=== PATIENT | female | born 1980 | race Two or more races ===

== ENCOUNTER 2016-02-09 08:09 | Inpatient (IN) | payer OTHER ==
[2016-02-09 10:16] VITALS: BMI 22.1
--- NOTE | 2016-02-09 10:28 | HP ---
COWS - Scale Resting Pulse: 1= [place] 81-100 Sweatin=Flushed/Facial Moisture Restless Observation: 3= Extraneous Movement Pupil Size: 2= Moderately Dilated Bone or Joint Aches: 2= Severe Diffuse Aches Runny Nose/ Eye Tearin= Runny Nose/Eyes GI Upset > 30mins: 3= Vomiting/Diarrhea Tremor Observation: 2= Slight Tremor Visible Yawning Observation: 2= >3x During Session Anxiety or Irritability: 2=Irritable/Anxious Goose Flesh Skin: 0=Smooth Skin COWS Score: 21 CIWA Score - CIWA Score Nausea/Vomitin Muscle Tremors: 3 Anxiety: 3 Agitation: 3 Paroxysmal Sweats: 2 Orientation: 0-Oriented Tacttile Disturbances: 2-Mild Itch/Numbness/Burn Auditory Disturbances: 2-Mild Harshness/Frighten Visual Disturbances: 2-Mild Sensitivity Headache: 2-Mild CIWA-Ar Total Score: 22 Admission ROS BHS - HPI Chief Complaint: i need help to stop using heroin,alcohol and cocaine Allergies/Adverse Reactions: Allergies Allergy/AdvReac Type Severity Reaction Status Date / Time Sulfa (Sulfonamide Allergy Unknown Verified 01/06/16 03:05 Antibiotics) [Sulfa(Sulfonamide Antibiotics)] sulfamethoxazole Allergy Unknown Verified 01/06/16 03:05 [From Bactrim] trimethoprim [From Bactrim] Allergy Unknown Verified 01/06/16 03:05 History of Present Illness: this 35 years old female with heroin,cocaine and alcohol dependence,withdrawal symptom,last detox 01/06/16 to 01/11/16 nicotine dependence weight loss several admissions in detox longest period of sobriety discharge form vagina supposed to take flagyl 500 mgs po bid non compliance Exam Limitations: No Limitations - Ebola screening Have you traveled outside of the country in the last 21 days: No Have you been sick,other than usual withdrawal symptoms: No - Review of Systems Constitutional: Chills, Diaphoresis, Loss of Appetite, Malaise, Night Sweats, Changes in sleep, Weakness, Unexplained wgt Loss EENT: reports: Tearing, Nose Congestion Respiratory: reports: No Symptoms reported Cardiac: reports: No Symptoms Reported GI: reports: Diarrhea, Nausea, Vomiting, Abdominal cramping : reports: No Symptoms Reported Musculoskeletal: reports: Back Pain, Muscle Pain Integumentary: reports: Dryness Neuro: reports: Headache, Tremors Endocrine: reports: No Symptoms Reported Hematology: reports: No Symptoms Reported Psychiatric: reports: No Sypmtoms Reported Other Systems: Reviewed and Negative Patient History - Patient Medical History Hx Anemia: No Hx Asthma: Yes (on albuterol inhaler) Hx Chronic Obstructive Pulmonary Disease (COPD): No Hx Cancer: No Hx Cardiac Disorders: No Hx Congestive Heart Failure: No Hx Hypertension: No Hx Hypercholesterolemia: No Hx Pacemaker: No HX Cerebrovascular Accident: No Hx Seizures: No Hx Dementia: No Hx Diabetes: No Hx Gastrointestinal Disorders: No Hx Liver Disease: No Hx Genitourinary Disorders: No Hx Sexually Transmitted Disorders: No Hx Renal Disease (ESRD): No Hx Thyroid Disease: No Hx Human Immunodeficiency Virus (HIV): No (LAST 2014 NEGATIVE) Hx Hepatitis C: No Hx Depression: No Hx Suicide Attempt: No Hx Bipolar Disorder: No Hx Schizophrenia: No Other Medical History: no suicidal,no homicidal,conjunctivitis both eyes, vcaginitis non compliance - Patient Surgical History Past Surgical History: Yes Hx Neurologic Surgery: No Hx Cataract Extraction: No Hx Cardiac Surgery: No Hx Lung Surgery: No Hx Breast Surgery: No Hx Breast Biopsy: No Hx Abdominal Surgery: No Hx Appendectomy: No Hx Cholecystectomy: No Hx Genitourinary Surgery: No Hx Section: Yes (x 3 LAST 2005) Hx Orthopedic Surgery: No Anesthesia Reaction: No - PPD History Previous Implant?: Yes Documented Results: Negative w/proof Date: 07/25/15 Results: Negative PPD to be Administered?: No - Reproductive History Patient is a Female of Child Bearing Age (11 -55 yrs old): Yes Last Menstrual Period: 12/16/15 Patient : No - Smoking Cessation Smoking history: Current every day smoker Have you smoked in the past 12 months: Yes Aproximately how many cigarettes per day: 20 Hx Chewing Tobacco Use: No Initiated information on smoking cessation: Yes 'Breaking Loose' booklet given: 02/09/16 - Substance & Tx. History Hx Alcohol Use: Yes Hx Substance Use: Yes Substance Use Type: Alcohol, Cocaine, Heroin Hx Substance Use Treatment: Yes (last 01/06/16 to 01/11/16) Family Disease History - Family Disease History Family Disease History: Diabetes: Grandparent (LUNG), Brother, [place]: Grandparent, Other: Mother (ALCOHOL), Sister (DSA) Admission Physical Exam BHS - Vital Signs Vital Signs: Vital Signs - 24 hr 02/09/16 10:10 Temperature 96.1 F L Pulse Rate 81 Respiratory 18 Rate Blood Pressure 105/62 - Physical General Appearance: Yes: Moderate Distress, Tremorous, Irritable, Sweating, Anxious HEENTM: Yes: Nasal Congestion, Rhinorrhea, Other (treated for conjuctivitis both eyes for 3 days) Respiratory: Yes: Within Normal Limits Neck: Yes: Within Normal Limits Breast: Yes: Breast Exam Deferred Cardiology: Yes: Within Normal Limits, Regular Rhythm, Regular Rate, S1, S2 Abdominal: Yes: Within Normal Limits, Normal Bowel Sounds, Non Tender, Flat, Soft Genitourinary: Yes: Within Normal Limits Back: Yes: Muscle Spasm Musculoskeletal: Yes: Back pain, Joint Stiffness, Muscle Pain Extremities: Yes: Tremors Neurological: Yes: Within Normal Limits, data security analyst II-XII NML intact, Fully Oriented, Alert, Motor Strength 5/5 Integumentary: Yes: Dry Lymphatic: Yes: Within Normal Limits - Diagnostic (1) Alcohol dependence with uncomplicated withdrawal Current Visit: No Status: Acute (2) Opioid dependence with withdrawal Current Visit: No Status: Acute (3) Weight loss Current Visit: No Status: Acute (4) Asthma Current Visit: No Status: Chronic Qualifiers: Asthma severity: mild intermittent Asthma complication type: with status asthmaticus Qualified Code(s): J45.22 - Mild intermittent asthma with status asthmaticus (5) Cocaine dependence Current Visit: No Status: Chronic Qualifiers: Substance use status: uncomplicated Qualified Code(s): F14.20 - Cocaine dependence, uncomplicated (6) Nicotine dependence Current Visit: No Status: Chronic Qualifiers: Nicotine product type: cigarettes Substance use status: uncomplicated Qualified Code(s): F17.210 - Nicotine dependence, cigarettes, uncomplicated (7) History of conjunctivitis Current Visit: Yes Status: Acute (8) History of vaginitis Current Visit: Yes Status: Acute (9) History of trichomonal vaginitis Current Visit: Yes Status: Acute Cleared for Admission [facility] - Detox or Rehab [facility] Level of Care: Medically Managed Detox Regimen/Protocol: Methadone/Valium [facility] Breath Alcohol Content Breath Alcohol Content: 0 Urine Pregancy Test - Result Urine Test Results: Negative- NO Line Present Urine Drug Screen - Results Drug Screen Negative: No Urine Drug Screen Results: EVELIN-Cocaine, OPI-Opiates, TCA-Tricyclic Antidepress, OXY-Oxycodone
[2016-02-09] MEDS ORDERED: guaiFENesin/D-METHORPHAN HB 10 ML UNIT-DOSE CUPS PO PRN (10:45)
[2016-02-09] MEDS ORDERED: MAGNESIUM HYDROX 2400MG/30ML ORAL SUSPENSION 30 ML CUP PO PRN (10:45)
[2016-02-09] MEDS ORDERED: MAG HYDROX/AL HYDROX/SIMETH 30 ML UNIT-DOSE CUP PO PRN (10:45)
[2016-02-09] MEDS ORDERED: ACETAMINOPHEN 325 MG TABLET (FP) PO PRN (10:45)
[2016-02-09] MEDS ORDERED: P-EPHED 60MG/TRIPROLIDI 2.5MG TABLET PO PRN (10:45)
[2016-02-09] MEDS ORDERED: hydrOXYzine PAMOATE 25 MG CAPSULE (FP) PO PRN (10:45)
[2016-02-09] MEDS ORDERED: MENTHOL/PHENOL 1 EACH UD MM PRN (10:45)
[2016-02-09] MEDS ORDERED: MAGNESIUM CITRATE 300 ML BOTTLE PO PRN (10:45)
[2016-02-09] MEDS ORDERED: LOPERAMIDE HCL 2 MG CAPSULE PO PRN (10:45)
[2016-02-09] MEDS ORDERED: IBUPROFEN 400 MG TABLET (FP) PO PRN (10:45)
[2016-02-09] MEDS ORDERED: ALBUTEROL SO4 6.7 GM HFA INHALER IH PRN (10:50)
[2016-02-09] MEDS ORDERED: diazePAM 5 MG TABLET PO ONE (10:52)
[2016-02-09] MEDS ORDERED: METHADONE HCL 10 MG TABLET (FOR DETOX USE ONLY) PO ONE ×2 (10:54→23:00)
[2016-02-09] MEDS: CYCLOBENZAPRINE HCL 10 MG TABLET (FP) PO PRN ×2 (11:38→22:57)
[2016-02-09] MEDS: diazePAM 5 MG TABLET PO SCH ×2 (14:59→22:57)
[2016-02-09] MEDS: diazePAM 5 MG TABLET PO PRN (19:25)
[2016-02-09 20:10] LABS: URINE APPEARANCE SLCLOUDY; URINE BILIRUBIN NEGATIVE (NEGATIVE); URINE BLOOD NEGATIVE (NEGATIVE); URINE COLOR AMBER; URINE GLUCOSE (UA) NEGATIVE (NEGATIVE); URINE KETONE TRACE (NEGATIVE); URINE LEUK ESTERASE NEGATIVE (NEGATIVE); URINE NITRITE NEGATIVE (NEGATIVE); URINE UROBILINOGEN NEGATIVE E.U./dl (0.2-1.0)
[2016-02-09 20:13] LABS: URINE PROTEIN 1+ (NEGATIVE)
[2016-02-09 20:46] LABS: URINE MUCUS MANY; URINE RBC 2 /hpf (0-3); URINE WBC 7 /hpf (3-5)
[2016-02-09] MEDS: cloNIDine HCL 0.1 MG TABLET PO SCH (22:57)
[2016-02-09] MEDS: THIAMINE HCL 100 MG TABLET (FP) PO SCH (22:57)
[2016-02-09] MEDS: TOBRA 0.3%/DEXAMETH 0.1% OPHTHALMIC SUSP 2.5 ML BTL OU SCH (23:14)
[2016-02-10] MEDS: diazePAM 5 MG TABLET PO SCH ×3 (05:50→22:25)
[2016-02-10] MEDS ORDERED: METHADONE HCL 10 MG TABLET (FOR DETOX USE ONLY) PO SCH (10:00)
[2016-02-10] MEDS: PRENATAL VITAMINS W/ FOLIC ACID TABLET (FP) PO SCH (10:34)
[2016-02-10] MEDS: CYCLOBENZAPRINE HCL 10 MG TABLET (FP) PO PRN ×2 (10:34→22:25)
[2016-02-10] MEDS: cloNIDine HCL 0.1 MG TABLET PO SCH ×2 (10:35→22:25)
[2016-02-10] MEDS: diazePAM 5 MG TABLET PO PRN ×2 (10:35→19:54)
--- NOTE | 2016-02-10 10:39 | PN ---
[facility] CIWA - CIWA Score Nausea/Vomitin Muscle Tremors: 3 Anxiety: 3 Agitation: 3 Paroxysmal Sweats: 3 Orientation: 0-Oriented Tacttile Disturbances: 2-Mild Itch/Numbness/Burn Auditory Disturbances: 0-None Visual Disturbances: 0-None Headache: 1-Very Mild CIWA-Ar Total Score: 18 BHS COWS - Scale Resting Pulse: 0= [place] 80 or Below Sweatin=Flushed/Facial Moisture Restless Observation: 1= Difficult to Sit Still Pupil Size: 1= Pupils >than Normal Bone or Joint Aches: 2= Severe Diffuse Aches Runny Nose/ Eye Tearin= Nasal Congestion GI Upset > 30mins: 1= Stomach Cramp Tremor Observation of Outstretched Hands: 2= Slight Tremor Visible Yawning Observation: 0= None Anxiety or Irritability: 2=Irritable/Anxious Goose Flesh Skin: 0=Smooth Skin COWS Score: 12 BHS Progress Note (SOAP) Subjective: interrrupted sleep, sweats, shakes , irritable Objective: 02/10/16 10:48 Vital Signs Temperature 97.2 F L 02/10/16 10:22 Pulse Rate 90 02/10/16 10:22 Respiratory Rate 18 02/10/16 10:22 Blood Pressure 110/78 02/10/16 10:22 O2 Sat by Pulse Oximetry (%) Laboratory Tests 02/09/16 14:00 Urine Color Twila Urine Appearance Slcloudy Urine pH 5.0 Ur Specific [place] 1.033 Urine Protein 1+ H Urine Glucose (UA) Negative Urine Ketones Trace H Urine Blood Negative Urine Nitrite Negative Urine Bilirubin Negative Urine Urobilinogen Negative Ur Leukocyte Esterase Negative Urine RBC 2 Urine WBC 7 Ur Epithelial Cells Rare Urine Mucus Many pending labs pt aox3 in nad but irritable Assessment: 02/10/16 10:48 withdrawl sx's conjunctivitis 02/10/16 10:51 Plan: cont. detox increase fluids cont eye drops
[2016-02-10 11:31] LABS: MCH 29.2 pg (25.7-33.7); MCHC 33.4 g/dl (32.0-36.0); MEAN CELL VOLUME 87.6 fl (80-96); PLATELET COUNT 254 K/MM3 (134-434); RDW 13.7 % (11.6-15.6); WHITE BLOOD COUNT 11.6 K/mm3 (4.0-10.0)
[2016-02-10] MEDS ORDERED: INFLUENZA VACCINE 45 MCG/0.5 ML (MDV 16-17) IM ONE (12:00)
[2016-02-10 12:09] LABS: ALBUMIN 3.7 g/dl (3.4-5.0); ALK PHOS 88 U/L (45-117); ANION GAP 7 (8-16); BILIRUBIN,TOTAL 0.3 mg/dL (0.2-1.0); CALCIUM 8.8 mg/dL (8.5-10.1); CO2 30 mmol/L (21-32); CREATININE 0.7 mg/dL (0.55-1.02); GLUCOSE,RANDOM 101 mg/dL (74-106); SGOT/AST 19 U/L (15-37); SGPT/ALT 15 U/L (12-78); TOT PROT 6.6 g/dl (6.4-8.2)
[2016-02-10] MEDS: TOBRA 0.3%/DEXAMETH 0.1% OPHTHALMIC SUSP 2.5 ML BTL OU SCH ×2 (14:33→22:25)
[2016-02-10] MEDS: THIAMINE HCL 100 MG TABLET (FP) PO SCH (22:25)
--- NOTE | 2016-02-11 10:08 | PN ---
S CIWA - CIWA Score Nausea/Vomitin Muscle Tremors: 3 Anxiety: 3 Agitation: 2 Paroxysmal Sweats: 1-Minimal Palms Moist Orientation: 0-Oriented Tacttile Disturbances: 1-Very Mild Itch/Numbness Auditory Disturbances: 1-Very Mild Visual Disturbances: 1-Very Mild Sensitivity Headache: 2-Mild CIWA-Ar Total Score: 17 BHS COWS - Scale Resting Pulse: 0= [place] 80 or Below Sweatin= Chills/Flushing Restless Observation: 3= Extraneous Movement Pupil Size: 1= Pupils >than Normal Bone or Joint Aches: 2= Severe Diffuse Aches Runny Nose/ Eye Tearin= Runny Nose/Eyes GI Upset > 30mins: 2= Nausea/Diarrhea Tremor Observation of Outstretched Hands: 2= Slight Tremor Visible Yawning Observation: 1= 1-2x During Session Anxiety or Irritability: 2=Irritable/Anxious Goose Flesh Skin: 0=Smooth Skin COWS Score: 16 S Progress Note (SOAP) Subjective: alert,irritable,anxious,interrupted sleep,tremor,pain in the body and back Objective: 02/11/16 10:06 Vital Signs Temperature 96.8 F L 02/11/16 10:04 Pulse Rate 75 02/11/16 10:04 Respiratory Rate 18 02/11/16 10:04 Blood Pressure 110/73 02/11/16 10:04 O2 Sat by Pulse Oximetry (%) Laboratory Last Values WBC 11.6 K/mm3 (4.0-10.0) H D 02/10/16 06:00 RBC 4.32 M/mm3 (3.60-5.2) 02/10/16 06:00 Hgb 12.6 GM/dL (10.7-15.3) 02/10/16 06:00 Hct 37.9 % (32.4-45.2) 02/10/16 06:00 MCV 87.6 fl (80-96) 02/10/16 06:00 MCHC 33.4 g/dl (32.0-36.0) 02/10/16 06:00 RDW 13.7 % (11.6-15.6) 02/10/16 06:00 Plt Count 254 K/MM3 (134-434) 02/10/16 06:00 MPV 10.0 fl (7.5-11.1) D 02/10/16 06:00 Sodium 140 mmol/L (136-145) 02/10/16 06:00 Potassium 4.4 mmol/L (3.5-5.1) 02/10/16 06:00 Chloride 103 mmol/L (98-107) 02/10/16 06:00 Carbon Dioxide 30 mmol/L (21-32) 02/10/16 06:00 Anion Gap 7 (8-16) L 02/10/16 06:00 BUN 12 mg/dL (7-18) D 02/10/16 06:00 Creatinine 0.7 mg/dL (0.55-1.02) 02/10/16 06:00 Creat Clearance w eGFR > 60 (>60) 02/10/16 06:00 Random Glucose 101 mg/dL (74-106) D 02/10/16 06:00 Calcium 8.8 mg/dL (8.5-10.1) 02/10/16 06:00 Total Bilirubin 0.3 mg/dL (0.2-1.0) D 02/10/16 06:00 AST 19 U/L (15-37) D 02/10/16 06:00 ALT 15 U/L (12-78) 02/10/16 06:00 Alkaline Phosphatase 88 U/L (45-117) D 02/10/16 06:00 Total Protein 6.6 g/dl (6.4-8.2) 02/10/16 06:00 Albumin 3.7 g/dl (3.4-5.0) 02/10/16 06:00 Urine Color Twila 02/09/16 14:00 Urine Appearance Slcloudy 02/09/16 14:00 Urine pH 5.0 (5.0-8.0) 02/09/16 14:00 Ur Specific [place] 1.033 (1.001-1.035) 02/09/16 14:00 Urine Protein 1+ (NEGATIVE) H 02/09/16 14:00 Urine Glucose (UA) Negative (NEGATIVE) 02/09/16 14:00 Urine Ketones Trace (NEGATIVE) H 02/09/16 14:00 Urine Blood Negative (NEGATIVE) 02/09/16 14:00 Urine Nitrite Negative (NEGATIVE) 02/09/16 14:00 Urine Bilirubin Negative (NEGATIVE) 02/09/16 14:00 Urine Urobilinogen Negative E.U./dl (0.2-1.0) 02/09/16 14:00 Ur Leukocyte Esterase Negative (NEGATIVE) 02/09/16 14:00 Urine RBC 2 /hpf (0-3) 02/09/16 14:00 Urine WBC 7 /hpf (3-5) 02/09/16 14:00 Ur Epithelial Cells Rare /hpf (FEW) 02/09/16 14:00 Urine Mucus Many 02/09/16 14:00 RPR Titer Nonreactive (NONREACTIVE) 02/10/16 06:00 Assessment: 02/11/16 10:07 withdrawal symptom Plan: continue detox,encourage oral fluid,repeat cbc in am
[2016-02-11] MEDS: cloNIDine HCL 0.1 MG TABLET PO SCH ×2 (10:13→22:22)
[2016-02-11] MEDS: TOBRA 0.3%/DEXAMETH 0.1% OPHTHALMIC SUSP 2.5 ML BTL OU SCH ×2 (10:13→22:23)
[2016-02-11] MEDS: METHADONE HCL 5 MG TABLET (FOR DETOX USE ONLY) PO SCH (10:13)
[2016-02-11] MEDS: diazePAM 5 MG TABLET PO SCH ×2 (10:13→22:23)
[2016-02-11] MEDS: PRENATAL VITAMINS W/ FOLIC ACID TABLET (FP) PO SCH (10:13)
[2016-02-11] MEDS: diazePAM 5 MG TABLET PO PRN ×2 (14:21→19:37)
[2016-02-11] MEDS: THIAMINE HCL 100 MG TABLET (FP) PO SCH (22:22)
[2016-02-11] MEDS: CYCLOBENZAPRINE HCL 10 MG TABLET (FP) PO PRN (22:22)
[2016-02-11] MEDS: diphenhydrAMINE HCL 50 MG CAPSULE PO PRN (22:23)
[2016-02-12 10:41] LABS: MCH 29.1 pg (25.7-33.7); MCHC 33.3 g/dl (32.0-36.0); MEAN CELL VOLUME 87.2 fl (80-96); MEAN PLT VOLUME 9.5 fl (7.5-11.1); PLATELET COUNT 253 K/MM3 (134-434); RDW 13.3 % (11.6-15.6); WHITE BLOOD COUNT 6.6 K/mm3 (4.0-10.0)
[2016-02-12] MEDS: PRENATAL VITAMINS W/ FOLIC ACID TABLET (FP) PO SCH (10:51)
[2016-02-12] MEDS: TOBRA 0.3%/DEXAMETH 0.1% OPHTHALMIC SUSP 2.5 ML BTL OU SCH ×2 (10:51→22:15)
[2016-02-12] MEDS: diazePAM 5 MG TABLET PO SCH ×2 (10:51→22:15)
[2016-02-12] MEDS: METHADONE HCL 5 MG TABLET (FOR DETOX USE ONLY) PO SCH (10:51)
[2016-02-12] MEDS: cloNIDine HCL 0.1 MG TABLET PO SCH ×2 (10:51→22:15)
--- NOTE | 2016-02-12 12:00 | PN ---
BHS Progress Note (SOAP) Subjective: alert,irritable,anxious,interrupted sleep,pain in the body Objective: 02/12/16 11:59 Vital Signs Temperature 97.2 F L 02/12/16 10:00 Pulse Rate 83 02/12/16 10:00 Respiratory Rate 16 02/12/16 10:00 Blood Pressure 108/71 02/12/16 10:00 O2 Sat by Pulse Oximetry (%) Assessment: 02/12/16 11:59 withdrawal symptom Plan: continue detox
[2016-02-12] MEDS: CYCLOBENZAPRINE HCL 10 MG TABLET (FP) PO PRN ×2 (17:26→22:15)
[2016-02-12] MEDS: THIAMINE HCL 100 MG TABLET (FP) PO SCH (22:15)
[2016-02-13] MEDS ORDERED: METHADONE HCL 10 MG TABLET (FOR DETOX USE ONLY) PO SCH (10:00)
[2016-02-13] MEDS ORDERED: diazePAM 5 MG TABLET PO SCH (10:00)
[2016-02-13] MEDS: cloNIDine HCL 0.1 MG TABLET PO SCH ×2 (10:16→22:26)
[2016-02-13] MEDS: PRENATAL VITAMINS W/ FOLIC ACID TABLET (FP) PO SCH (10:16)
[2016-02-13] MEDS: TOBRA 0.3%/DEXAMETH 0.1% OPHTHALMIC SUSP 2.5 ML BTL OU SCH ×2 (10:17→22:31)
--- NOTE | 2016-02-13 10:40 | PN ---
BHS Progress Note (SOAP) Subjective: SWEATING,INTERRUPTED SLEEP,RESTLESS Objective: 02/13/16 10:40 Vital Signs - 8 hr 02/13/16 02/13/16 02/13/16 03:30 06:00 10:00 Temperature 97.2 F L 97.2 F L Pulse Rate 59 L 91 H Respiratory 18 16 18 Rate Blood Pressure 96/58 106/73 Laboratory Last Values WBC 6.6 K/mm3 (4.0-10.0) D 02/12/16 07:50 RBC 4.63 M/mm3 (3.60-5.2) 02/12/16 07:50 Hgb 13.4 GM/dL (10.7-15.3) 02/12/16 07:50 Hct 40.3 % (32.4-45.2) 02/12/16 07:50 MCV 87.2 fl (80-96) 02/12/16 07:50 MCHC 33.3 g/dl (32.0-36.0) 02/12/16 07:50 RDW 13.3 % (11.6-15.6) 02/12/16 07:50 Plt Count 253 K/MM3 (134-434) 02/12/16 07:50 MPV 9.5 fl (7.5-11.1) 02/12/16 07:50 Sodium 140 mmol/L (136-145) 02/10/16 06:00 Potassium 4.4 mmol/L (3.5-5.1) 02/10/16 06:00 Chloride 103 mmol/L (98-107) 02/10/16 06:00 Carbon Dioxide 30 mmol/L (21-32) 02/10/16 06:00 Anion Gap 7 (8-16) L 02/10/16 06:00 BUN 12 mg/dL (7-18) D 02/10/16 06:00 Creatinine 0.7 mg/dL (0.55-1.02) 02/10/16 06:00 Creat Clearance w eGFR > 60 (>60) 02/10/16 06:00 Random Glucose 101 mg/dL (74-106) D 02/10/16 06:00 Calcium 8.8 mg/dL (8.5-10.1) 02/10/16 06:00 Total Bilirubin 0.3 mg/dL (0.2-1.0) D 02/10/16 06:00 AST 19 U/L (15-37) D 02/10/16 06:00 ALT 15 U/L (12-78) 02/10/16 06:00 Alkaline Phosphatase 88 U/L (45-117) D 02/10/16 06:00 Total Protein 6.6 g/dl (6.4-8.2) 02/10/16 06:00 Albumin 3.7 g/dl (3.4-5.0) 02/10/16 06:00 Urine Color Twila 02/09/16 14:00 Urine Appearance Slcloudy 02/09/16 14:00 Urine pH 5.0 (5.0-8.0) 02/09/16 14:00 Ur Specific [place] 1.033 (1.001-1.035) 02/09/16 14:00 Urine Protein 1+ (NEGATIVE) H 02/09/16 14:00 Urine Glucose (UA) Negative (NEGATIVE) 02/09/16 14:00 Urine Ketones Trace (NEGATIVE) H 02/09/16 14:00 Urine Blood Negative (NEGATIVE) 02/09/16 14:00 Urine Nitrite Negative (NEGATIVE) 02/09/16 14:00 Urine Bilirubin Negative (NEGATIVE) 02/09/16 14:00 Urine Urobilinogen Negative E.U./dl (0.2-1.0) 02/09/16 14:00 Ur Leukocyte Esterase Negative (NEGATIVE) 02/09/16 14:00 Urine RBC 2 /hpf (0-3) 02/09/16 14:00 Urine WBC 7 /hpf (3-5) 02/09/16 14:00 Ur Epithelial Cells Rare /hpf (FEW) 02/09/16 14:00 Urine Mucus Many 02/09/16 14:00 RPR Titer Nonreactive (NONREACTIVE) 02/10/16 06:00 LABS NOTED Assessment: 02/13/16 10:40 WITHDRAWAL SX. Plan: CONTINUE DETOX
[2016-02-13] MEDS: CYCLOBENZAPRINE HCL 10 MG TABLET (FP) PO PRN (22:26)
[2016-02-13] MEDS: diphenhydrAMINE HCL 50 MG CAPSULE PO PRN (22:26)
[2016-02-13] MEDS: THIAMINE HCL 100 MG TABLET (FP) PO SCH (22:26)
[2016-02-14] MEDS ORDERED: METHADONE HCL 5 MG TABLET (FOR DETOX USE ONLY) PO SCH (06:00)
--- NOTE | 2016-02-14 08:45 | PN ---
S Progress Note (SOAP) Subjective: ALERT,NO COMPLAINT Objective: 02/14/16 08:44 Vital Signs Temperature 97.7 F 02/14/16 06:00 Pulse Rate 72 02/14/16 06:00 Respiratory Rate 16 02/14/16 06:00 Blood Pressure 87/47 02/14/16 06:00 O2 Sat by Pulse Oximetry (%) Assessment: 02/14/16 08:44 DETOX COMPLETED,NO WITHDRAWAL SYMPTOM Plan: DISCHARGE TODAY,FOLLOW UP WITH AFTER CARE PROGRAM ARRANGEMENT
--- NOTE | 2016-02-14 08:46 | DS ---
[facility] Detox Discharge Summary Admission Date: 02/09/16 Discharge Date: 02/14/16 - History Present History: Alcohol Dependence, Cocaine Dependence, Opioid Dependence Additional Comments: FOLLOW UP WITH AFTER [facility] PROGRAM ARRANGEMENT AND PMD FOR MEDICAL PROBLEM Pertinent Past History: ASTHMA NICOTINE DEPENDENCE HISOTRY OF CONJUNCTIVITIS HISTORY OF VAGINITIS - Physical Exam Results Vital Signs: Vital Signs Temperature 97.7 F 02/14/16 06:00 Pulse Rate 72 02/14/16 06:00 Respiratory Rate 16 02/14/16 06:00 Blood Pressure 87/47 02/14/16 06:00 O2 Sat by Pulse Oximetry (%) Pertinent Admission Physical Exam Findings: WITHDRAWAL SYMPTOM - Treatment Hospital Course: Detox Protocol Followed, Detoxed Safely, Responded well, Discharged Condition Good Patient has Accepted a Rehab Referral to: DECLINED - Medication Discharge Medications: Ambulatory Orders Albuterol Sulfate Inhaler - [Ventolin Hfa Inhaler -] 2 inh PO Q4H PRN 02/09/16 Tobramycin Sulf/Dexamethasone [Tobradex] 2 drop OU BID 02/09/16 - Diagnosis (1) Alcohol dependence with uncomplicated withdrawal Current Visit: No Status: Acute (2) Opioid dependence with withdrawal Current Visit: No Status: Acute (3) Weight loss Current Visit: No Status: Acute (4) Asthma Current Visit: No Status: Chronic Qualifiers: Asthma severity: mild intermittent Asthma complication type: with status asthmaticus Qualified Code(s): J45.22 - Mild intermittent asthma with status asthmaticus (5) Cocaine dependence Current Visit: No Status: Chronic Qualifiers: Substance use status: uncomplicated Qualified Code(s): F14.20 - Cocaine dependence, uncomplicated (6) Nicotine dependence Current Visit: No Status: Chronic Qualifiers: Nicotine product type: cigarettes Substance use status: uncomplicated Qualified Code(s): F17.210 - Nicotine dependence, cigarettes, uncomplicated (7) History of conjunctivitis Current Visit: Yes Status: Acute (8) History of vaginitis Current Visit: Yes Status: Acute (9) History of trichomonal vaginitis Current Visit: Yes Status: Acute - AMA Did Patient Leave Against Medical Advice: No
[2016-02-14 10:17] VITALS: BP 99/54; PULSE 97; TEMP 98.2
== END 2016-02-14 10:12 | disposition home or self-care (01) | DRG 773 ==
LOC: YASAS 08:09 → Y6N 10:40
PROVIDERS: ADMIT Internal Medicine Addiction Medicine; ATTEND Internal Medicine Addiction Medicine
PROC: HZ2ZZZZ Detoxification Services for Substance Abuse Treatment (ICD-10-PCS; principal; 2016-02-09)
DX: F11.23 Opioid dependence with withdrawal (principal); F10.230 Alcohol dependence with withdrawal, uncomplicated; F14.20 Cocaine dependence, uncomplicated; F17.210 Nicotine dependence, cigarettes, uncomplicated; J45.22 Mild intermittent asthma with status asthmaticus; H10.9 Unspecified conjunctivitis; N76.0 Acute vaginitis; Z87.898 Personal history of other specified conditions; Z91.14 Patient's other noncompliance with medication regimen
CPT/HCPCS: 36415; 80053; 81003; 81015; 85027; 86593; 93005; 93010

== ENCOUNTER 2016-02-26 09:50 | Inpatient (IN) | payer OTHER ==
[2016-02-26 10:05] VITALS: BMI 21.9
--- NOTE | 2016-02-26 10:35 | HP ---
COWS - Scale Resting Pulse: 1= [place] 81-100 Sweatin= Chills/Flushing Restless Observation: 1= Difficult to Sit Still Pupil Size: 0= Normal to Room Light Bone or Joint Aches: 1= Mild Discomfort Runny Nose/ Eye Tearin= Nasal Congestion GI Upset > 30mins: 1= Stomach Cramp Tremor Observation: 1= Tremor [place], Not Seen Yawning Observation: 1= 1-2x During Session Anxiety or Irritability: 2=Irritable/Anxious Goose Flesh Skin: 0=Smooth Skin COWS Score: 10 CIWA Score - CIWA Score Nausea/Vomitin-Mild Nausea/No Vomiting Muscle Tremors: 4-Moderate,w/Arms Extend Anxiety: 4-Mod. Anxious/Guarded Agitation: 1-Slight > Activity Paroxysmal Sweats: 1-Minimal Palms Moist Orientation: 1-Uncertain about Date Tacttile Disturbances: 1-Very Mild Itch/Numbness Auditory Disturbances: 2-Mild Harshness/Frighten Visual Disturbances: 1-Very Mild Sensitivity Headache: 2-Mild CIWA-Ar Total Score: 18 Admission ROS S - HPI Chief Complaint: I want to stop using Allergies/Adverse Reactions: Allergies Allergy/AdvReac Type Severity Reaction Status Date / Time Sulfa (Sulfonamide Allergy Unknown Verified 02/26/16 10:58 Antibiotics) [Sulfa(Sulfonamide Antibiotics)] sulfamethoxazole Allergy Unknown Verified 02/26/16 10:58 [From Bactrim] trimethoprim [From Bactrim] Allergy Unknown Verified 02/26/16 10:58 History of Present Illness: 35 yo woman here for detox from alcohol, opiates, cocaine - irritable - history of multiple treatments for detox and rehab. Denies seizures. Chronic vaginal trichomonas - states she was Rx medication 02/02 but never took it due to drinking and wants to take it now. Last here 02/08-02/14/16 - states she relapsed immediately upon leaving detox. Thinking about rehab. Exam Limitations: Clinical Condition - Ebola screening Have you traveled outside of the country in the last 21 days: No (N) Have you had contact with anyone from an Ebola affected area: No Have you been sick,other than usual withdrawal symptoms: No Do you have a fever: No - Review of Systems Constitutional: Loss of Appetite, Malaise, Changes in sleep, Unintentional Wgt. Loss EENT: reports: Blurred Vision, Nose Congestion Respiratory: reports: No Symptoms reported Cardiac: reports: No Symptoms Reported GI: reports: Nausea, Indigestion : reports: No Symptoms Reported Musculoskeletal: reports: Back Pain, Muscle Pain Integumentary: reports: No Symptoms Reported Neuro: reports: Headache Endocrine: reports: No Symptoms Reported Hematology: reports: No Symptoms Reported Psychiatric: reports: Judgement Intact, Agitated, Anxious Other Systems: Reviewed and Negative Patient History - Patient Medical History Hx Anemia: No Hx Asthma: Yes (on albuterol inhaler) Hx Chronic Obstructive Pulmonary Disease (COPD): No Hx Cancer: No Hx Cardiac Disorders: No Hx Congestive Heart Failure: No Hx Hypertension: No Hx Hypercholesterolemia: No Hx Pacemaker: No HX Cerebrovascular Accident: No Hx Seizures: No Hx Dementia: No Hx Diabetes: No Hx Gastrointestinal Disorders: No Hx Liver Disease: No Hx Genitourinary Disorders: No Hx Sexually Transmitted Disorders: No Hx Renal Disease (ESRD): No Hx Thyroid Disease: No Hx Human Immunodeficiency Virus (HIV): No (LAST 2014 NEGATIVE) Hx Hepatitis C: No Hx Depression: No Hx Suicide Attempt: No Hx Bipolar Disorder: No Hx Schizophrenia: No - Patient Surgical History Past Surgical History: Yes Hx Neurologic Surgery: No Hx Cataract Extraction: No Hx Cardiac Surgery: No Hx Lung Surgery: No Hx Breast Surgery: No Hx Breast Biopsy: No Hx Abdominal Surgery: No Hx Appendectomy: No Hx Cholecystectomy: No Hx Genitourinary Surgery: No Hx Section: Yes (x 3 LAST 2005) Hx Orthopedic Surgery: No Anesthesia Reaction: No - PPD History Previous Implant?: Yes Documented Results: Negative w/proof Date: 07/25/15 Results: Negative PPD to be Administered?: No - Reproductive History Patient is a Female of Child Bearing Age (11 -55 yrs old): Yes Last Menstrual Period: 12/16/15 Patient : No - Smoking Cessation Smoking history: Current every day smoker Have you smoked in the past 12 months: Yes Aproximately how many cigarettes per day: 40 Hx Chewing Tobacco Use: No Initiated information on smoking cessation: Yes 'Breaking Loose' booklet given: 02/26/16 (given on floor) - Substance & Tx. History Hx Alcohol Use: Yes Hx Substance Use: Yes Substance Use Type: Alcohol, Cocaine, Heroin Hx Substance Use Treatment: Yes (detox, rehab, methadone, suboxone) - Substances Abused Alcohol Route: Oral Frequency: 3-6 times per week Amount used: 1 pint Age of first use: 12 Date of Last Use: 02/25/16 Crack Route: Smoking Frequency: 3-6 times per week Amount used: $60 Age of first use: 21 Date of Last Use: 02/25/16 Heroin Route: Inhalation Frequency: Daily Amount used: 10 bags Age of first use: 30 Date of Last Use: 02/25/16 Family Disease History - Family Disease History Family Disease History: Diabetes: Grandparent (LUNG), Brother, Heart Disease: Father ( [place]), [place]: Grandparent, Other: Mother (ALCOHOL), Sister (DSA) Admission Physical Exam [facility] - Vital Signs Vital Signs: Vital Signs - 24 hr 02/26/16 10:03 Temperature 96.0 F L Pulse Rate 98 H Respiratory 18 Rate Blood Pressure 115/64 - Physical General Appearance: Yes: Nourished, Appropriately Dressed, Mild Distress, Anxious HEENTM: Yes: Hearing grossly Normal, Normal ENT Inspection, Normocephalic, Normal Voice, Pharynx Normal, Nasal Congestion Respiratory: Yes: Normal Breath Sounds, No Respiratory Distress Neck: Yes: No masses,lesions,Nodules, Trachea in good position Breast: Yes: Breast Exam Deferred Cardiology: Yes: Regular Rhythm, Regular Rate Abdominal: Yes: Soft Genitourinary: Yes: Frequency Back: Yes: Normal Inspection Musculoskeletal: Yes: full range of Motion, Gait Steady Extremities: Yes: Normal Inspection Neurological: Yes: Alert, Normal Mood/Affect Integumentary: Yes: Normal Color, Warm Lymphatic: Yes: Within Normal Limits - Diagnostic (1) Vaginal trichomoniasis Current Visit: Yes Status: Chronic (2) Alcohol dependence with uncomplicated withdrawal Current Visit: Yes Status: Chronic (3) Opioid dependence with withdrawal Current Visit: Yes Status: Chronic (4) Asthma Current Visit: Yes Status: Chronic Qualifiers: Asthma severity: mild intermittent Asthma complication type: with status asthmaticus Qualified Code(s): J45.22 - Mild intermittent asthma with status asthmaticus (5) Cocaine dependence Current Visit: Yes Status: Chronic Qualifiers: Substance use status: uncomplicated Qualified Code(s): F14.20 - Cocaine dependence, uncomplicated Cleared for Admission S - Detox or Rehab S Level of Care: Medically Managed Detox Regimen/Protocol: Methadone/Librium BHS Breath Alcohol Content Breath Alcohol Content: 0 Urine Pregancy Test - Result Urine Test Results: Negative- NO Line Present Urine Drug Screen - Results Drug Screen Negative: No Urine Drug Screen Results: EVELIN-Cocaine, OPI-Opiates, BZO-Benzodiazepines, TCA- Tricyclic Antidepress, OXY-Oxycodone
[2016-02-26] MEDS ORDERED: hydrOXYzine PAMOATE 50 MG CAPSULE (FP) PO PRN (10:55)
[2016-02-26] MEDS ORDERED: MAGNESIUM HYDROX 2400MG/30ML ORAL SUSPENSION 30 ML CUP PO PRN (10:55)
[2016-02-26] MEDS ORDERED: LOPERAMIDE HCL 2 MG CAPSULE PO PRN (10:55)
[2016-02-26] MEDS ORDERED: MENTHOL/PHENOL 1 EACH UD MM PRN (10:55)
[2016-02-26] MEDS ORDERED: diphenhydrAMINE HCL 50 MG CAPSULE PO PRN (10:55)
[2016-02-26] MEDS ORDERED: P-EPHED 60MG/TRIPROLIDI 2.5MG TABLET PO PRN (10:55)
[2016-02-26] MEDS ORDERED: IBUPROFEN 400 MG TABLET (FP) PO PRN (10:55)
[2016-02-26] MEDS ORDERED: ACETAMINOPHEN 325 MG TABLET (FP) PO PRN (10:55)
[2016-02-26] MEDS ORDERED: MAG HYDROX/AL HYDROX/SIMETH 30 ML UNIT-DOSE CUP PO PRN (10:55)
[2016-02-26] MEDS ORDERED: MAGNESIUM CITRATE 300 ML BOTTLE PO PRN (10:55)
[2016-02-26] MEDS ORDERED: chlordiazePOXIDE HCL 25 MG CAPSULE PO PRN (10:55)
[2016-02-26] MEDS ORDERED: guaiFENesin/D-METHORPHAN HB 10 ML UNIT-DOSE CUPS PO PRN (10:55)
[2016-02-26] MEDS ORDERED: ALBUTEROL SO4 6.7 GM HFA INHALER IH PRN (10:57)
[2016-02-26] MEDS ORDERED: METHADONE HCL 10 MG TABLET (FOR DETOX USE ONLY) PO ONE ×2 (11:45→23:00)
[2016-02-26] MEDS ORDERED: chlordiazePOXIDE HCL 25 MG CAPSULE PO ONE (11:45)
--- NOTE | 2016-02-26 16:14 | EKG ---
Test Reason : Blood Pressure : / mmHG Vent. Rate : 068 BPM Atrial Rate : 068 BPM P-R Int : 160 ms QRS Dur : 084 ms QT Int : 392 ms P-R-T Axes : 059 071 053 degrees QTc Int : 416 ms NORMAL SINUS RHYTHM NORMAL ECG NO PREVIOUS ECGS AVAILABLE Confirmed by DIGNA MCCORMICK, RAFAEL ([id number]) on 02/26/2016 4:13:58 PM Referred By: Confirmed By:RAFAEL SAWYER MD
[2016-02-26 17:54] LABS: URINE APPEARANCE SLCLOUDY; URINE BILIRUBIN NEGATIVE (NEGATIVE); URINE BLOOD NEGATIVE (NEGATIVE); URINE COLOR YELLOW; URINE GLUCOSE (UA) NEGATIVE (NEGATIVE); URINE KETONE TRACE (NEGATIVE); URINE NITRITE NEGATIVE (NEGATIVE); URINE PROTEIN NEGATIVE (NEGATIVE); URINE UROBILINOGEN NEGATIVE E.U./dl (0.2-1.0)
[2016-02-26 18:13] LABS: URINE LEUK ESTERASE TRACE (NEGATIVE)
[2016-02-26] MEDS: chlordiazePOXIDE HCL 25 MG CAPSULE PO SCH ×2 (18:20→23:12)
[2016-02-26 18:49] LABS: URINE HYALINE CAST 1 /lpf; URINE MUCUS FEW; URINE RBC <1 /hpf (0-3); URINE WBC <1 /hpf (3-5)
[2016-02-26] MEDS: THIAMINE HCL 100 MG TABLET (FP) PO SCH (23:12)
[2016-02-27] MEDS: chlordiazePOXIDE HCL 25 MG CAPSULE PO SCH (06:11)
[2016-02-27 09:20] LABS: MCH 29.4 pg (25.7-33.7); MCHC 33.3 g/dl (32.0-36.0); MEAN CELL VOLUME 88.2 fl (80-96); MEAN PLT VOLUME 8.8 fl (7.5-11.1); PLATELET COUNT 269 K/MM3 (134-434); RDW 13.8 % (11.6-15.6); WHITE BLOOD COUNT 6.1 K/mm3 (4.0-10.0)
[2016-02-27 09:26] LABS: ALBUMIN 3.5 g/dl (3.4-5.0); ALK PHOS 79 U/L (45-117); ANION GAP 5 (8-16); BILIRUBIN,TOTAL 0.4 mg/dL (0.2-1.0); CALCIUM 8.8 mg/dL (8.5-10.1); CO2 28 mmol/L (21-32); CREATININE 0.8 mg/dL (0.55-1.02); GLUCOSE,RANDOM 110 mg/dL (74-106); SGOT/AST 11 U/L (15-37); SGPT/ALT 16 U/L (12-78); TOT PROT 6.6 g/dl (6.4-8.2)
[2016-02-27] MEDS ORDERED: diazePAM 5 MG TABLET PO ONE (09:52)
[2016-02-27] MEDS ORDERED: METHADONE HCL 10 MG TABLET (FOR DETOX USE ONLY) PO SCH (10:00)
--- NOTE | 2016-02-27 11:55 | PN ---
S CIWA - CIWA Score Nausea/Vomitin Muscle Tremors: 3 Anxiety: 3 Agitation: 2 Paroxysmal Sweats: 1-Minimal Palms Moist Orientation: 0-Oriented Tacttile Disturbances: 1-Very Mild Itch/Numbness Auditory Disturbances: 1-Very Mild Visual Disturbances: 1-Very Mild Sensitivity Headache: 2-Mild CIWA-Ar Total Score: 17 BHS Progress Note (SOAP) Subjective: ALERT,IRRITABLE,ANXIOUS,INTERRUPTED SLEEP,TREMOR,PAIN IN THE BODY AND BACK Objective: 02/27/16 11:53 Vital Signs Temperature 98.5 F 02/27/16 10:00 Pulse Rate 102 H 02/27/16 10:00 Respiratory Rate 18 02/27/16 10:00 Blood Pressure 107/82 02/27/16 10:00 O2 Sat by Pulse Oximetry (%) EKG NSR,NORMAL ECG Laboratory Last Values WBC 6.1 K/mm3 (4.0-10.0) 02/27/16 07:20 RBC 4.96 M/mm3 (3.60-5.2) 02/27/16 07:20 Hgb 14.6 GM/dL (10.7-15.3) 02/27/16 07:20 Hct 43.8 % (32.4-45.2) 02/27/16 07:20 MCV 88.2 fl (80-96) 02/27/16 07:20 MCHC 33.3 g/dl (32.0-36.0) 02/27/16 07:20 RDW 13.8 % (11.6-15.6) 02/27/16 07:20 Plt Count 269 K/MM3 (134-434) 02/27/16 07:20 MPV 8.8 fl (7.5-11.1) 02/27/16 07:20 Sodium 138 mmol/L (136-145) 02/27/16 07:20 Potassium 4.3 mmol/L (3.5-5.1) 02/27/16 07:20 Chloride 105 mmol/L (98-107) 02/27/16 07:20 Carbon Dioxide 28 mmol/L (21-32) 02/27/16 07:20 Anion Gap 5 (8-16) L 02/27/16 07:20 BUN 12 mg/dL (7-18) 02/27/16 07:20 Creatinine 0.8 mg/dL (0.55-1.02) 02/27/16 07:20 Creat Clearance w eGFR > 60 (>60) 02/27/16 07:20 Random Glucose 110 mg/dL (74-106) H 02/27/16 07:20 Calcium 8.8 mg/dL (8.5-10.1) 02/27/16 07:20 Total Bilirubin 0.4 mg/dL (0.2-1.0) D 02/27/16 07:20 AST 11 U/L (15-37) L D 02/27/16 07:20 ALT 16 U/L (12-78) 02/27/16 07:20 Alkaline Phosphatase 79 U/L (45-117) 02/27/16 07:20 Total Protein 6.6 g/dl (6.4-8.2) 02/27/16 07:20 Albumin 3.5 g/dl (3.4-5.0) 02/27/16 07:20 Urine Color Yellow 02/26/16 14:00 Urine Appearance Slcloudy 02/26/16 14:00 Urine pH 5.0 (5.0-8.0) 02/26/16 14:00 Ur Specific [place] 1.029 (1.001-1.035) 02/26/16 14:00 Urine Protein Negative (NEGATIVE) 02/26/16 14:00 Urine Glucose (UA) Negative (NEGATIVE) 02/26/16 14:00 Urine Ketones Trace (NEGATIVE) H 02/26/16 14:00 Urine Blood Negative (NEGATIVE) 02/26/16 14:00 Urine Nitrite Negative (NEGATIVE) 02/26/16 14:00 Urine Bilirubin Negative (NEGATIVE) 02/26/16 14:00 Urine Urobilinogen Negative E.U./dl (0.2-1.0) 02/26/16 14:00 Ur Leukocyte Esterase Trace (NEGATIVE) H 02/26/16 14:00 Urine RBC <1 /hpf (0-3) 02/26/16 14:00 Urine WBC <1 /hpf (3-5) 02/26/16 14:00 Ur Epithelial Cells Rare /hpf (FEW) 02/26/16 14:00 Hyaline Casts 1 /lpf 02/26/16 14:00 Urine Mucus Few 02/26/16 14:00 RPR Titer Nonreactive (NONREACTIVE) 02/27/16 07:20 Assessment: 02/27/16 11:54 WITHDRAWAL SYMPTOM Plan: CONTINUE DETOX
--- NOTE | 2016-02-27 11:59 | PN ---
BHS Progress Note Note: PATIENT WOULD LIKE REGIMEN TO CHANGE TO VALIUM INSTEAD OF LIBRIUM
[2016-02-27] MEDS: PRENATAL VITAMINS W/ FOLIC ACID TABLET (FP) PO SCH (13:12)
[2016-02-27] MEDS: diazePAM 5 MG TABLET PO SCH ×2 (13:15→21:57)
[2016-02-27] MEDS ORDERED: chlordiazePOXIDE HCL 25 MG CAPSULE PO SCH (17:00)
[2016-02-27] MEDS: diazePAM 5 MG TABLET PO PRN (18:08)
[2016-02-27] MEDS: THIAMINE HCL 100 MG TABLET (FP) PO SCH (21:57)
[2016-02-28] MEDS: diazePAM 5 MG TABLET PO SCH ×3 (06:42→23:19)
--- NOTE | 2016-02-28 09:23 | CONSULT ---
[facility] Psychiatric Consult - Data Date of interview: 02/28/16 Admission source: [facility] Identifying data: The patient is a 35 years old single Black female, mother of 2 children, living with and supported by [facility] seeking detox treatment for alcohol, heroin and cocaine Substance Abuse History: Alcohol daily use, started first at age of 14, Crack Smoking Daily for 40$ started at of 21.Heroin daily use, cigarettes 1PPD. Medical History: Significant for history of chronic bronchitis, GERD and S/P C- Section X3 most recently in 2005. Smokes cigaretes 1ppd Psychiatric History: Denies history of previous psychiatric treatment, reports she takes Trazadone 150 mg for insomnia which prescried by her PCP, presently reports she feels "sick, leave me alone". Patient is very irritable reports she feels "like throwing up". Physical/Sexual Abuse/Trauma History: unable to obtain, patient is not feeling well to discuss. Mental Status Exam - Mental Status Exam Alert and Oriented to: Place, Person Cognitive Function: Grossly Intact Patient Appearance: Unkempt Mood: Angry, Irritable Affect: Mood Congruent Patient Behavior: Guarded Speech Pattern: Clear Voice Loudness: Normal Thought Process: Intact Thought Disorder: Not Present Hallucinations: Denies Suicidal Ideation: Denies Homicidal Ideation: Denies Insight/Judgement: Fair Sleep: Fair Appetite: Poor Muscle strength/Tone: Normal Gait/Station: Normal Psychiatric Findings - Problem List ([place] 1, 2,3) (1) Alcohol dependence with uncomplicated withdrawal Current Visit: Yes Status: Chronic (2) Cocaine dependence Current Visit: Yes Status: Chronic Qualifiers: Substance use status: uncomplicated Qualified Code(s): F14.20 - Cocaine dependence, uncomplicated (3) Opioid dependence with withdrawal Current Visit: Yes Status: Chronic (4) Substance induced mood disorder Current Visit: No Status: Acute (5) Substance-induced sleep disorder Current Visit: No Status: Acute - Initial Treatment Plan Initial Treatment Plan: Patient will continue detox. protocol no trazodone will be added due to the patient's nausea.
[2016-02-28] MEDS: PRENATAL VITAMINS W/ FOLIC ACID TABLET (FP) PO SCH (10:30)
[2016-02-28] MEDS: diazePAM 5 MG TABLET PO PRN ×2 (10:30→17:29)
[2016-02-28] MEDS: METHADONE HCL 5 MG TABLET (FOR DETOX USE ONLY) PO SCH (10:30)
--- NOTE | 2016-02-28 12:04 | PN ---
[facility] CIWA - CIWA Score Nausea/Vomitin Muscle Tremors: 3 Anxiety: 3 Agitation: 2 Paroxysmal Sweats: 1-Minimal Palms Moist Orientation: 0-Oriented Tacttile Disturbances: 1-Very Mild Itch/Numbness Auditory Disturbances: 1-Very Mild Visual Disturbances: 1-Very Mild Sensitivity Headache: 2-Mild CIWA-Ar Total Score: 17 BHS COWS - Scale Resting Pulse: 1= CA 81-100 Sweatin= Chills/Flushing Restless Observation: 3= Extraneous Movement Pupil Size: 1= Pupils >than Normal Bone or Joint Aches: 2= Severe Diffuse Aches Runny Nose/ Eye Tearin= Runny Nose/Eyes GI Upset > 30mins: 2= Nausea/Diarrhea Tremor Observation of Outstretched Hands: 2= Slight Tremor Visible Yawning Observation: 1= 1-2x During Session Anxiety or Irritability: 2=Irritable/Anxious Goose Flesh Skin: 0=Smooth Skin COWS Score: 17 S Progress Note (SOAP) Subjective: ALERT,IRRITABLE,ANXIOUS,INTERRUPTED SLEEP,TREMOR,PAIN IN THE BODY AND BACK Objective: 02/28/16 11:58 Vital Signs Temperature 97.6 F 02/28/16 09:52 Pulse Rate 95 H 02/28/16 09:52 Respiratory Rate 18 02/28/16 09:52 Blood Pressure 112/68 02/28/16 09:52 O2 Sat by Pulse Oximetry (%) 02/28/16 12:04 Laboratory Last Values WBC 6.1 K/mm3 (4.0-10.0) 02/27/16 07:20 RBC 4.96 M/mm3 (3.60-5.2) 02/27/16 07:20 Hgb 14.6 GM/dL (10.7-15.3) 02/27/16 07:20 Hct 43.8 % (32.4-45.2) 02/27/16 07:20 MCV 88.2 fl (80-96) 02/27/16 07:20 MCHC 33.3 g/dl (32.0-36.0) 02/27/16 07:20 RDW 13.8 % (11.6-15.6) 02/27/16 07:20 Plt Count 269 K/MM3 (134-434) 02/27/16 07:20 MPV 8.8 fl (7.5-11.1) 02/27/16 07:20 Sodium 138 mmol/L (136-145) 02/27/16 07:20 Potassium 4.3 mmol/L (3.5-5.1) 02/27/16 07:20 Chloride 105 mmol/L (98-107) 02/27/16 07:20 Carbon Dioxide 28 mmol/L (21-32) 02/27/16 07:20 Anion Gap 5 (8-16) L 02/27/16 07:20 BUN 12 mg/dL (7-18) 02/27/16 07:20 Creatinine 0.8 mg/dL (0.55-1.02) 02/27/16 07:20 Creat Clearance w eGFR > 60 (>60) 02/27/16 07:20 Random Glucose 110 mg/dL (74-106) H 02/27/16 07:20 Calcium 8.8 mg/dL (8.5-10.1) 02/27/16 07:20 Total Bilirubin 0.4 mg/dL (0.2-1.0) D 02/27/16 07:20 AST 11 U/L (15-37) L D 02/27/16 07:20 ALT 16 U/L (12-78) 02/27/16 07:20 Alkaline Phosphatase 79 U/L (45-117) 02/27/16 07:20 Total Protein 6.6 g/dl (6.4-8.2) 02/27/16 07:20 Albumin 3.5 g/dl (3.4-5.0) 02/27/16 07:20 Urine Color Yellow 02/26/16 14:00 Urine Appearance Slcloudy 02/26/16 14:00 Urine pH 5.0 (5.0-8.0) 02/26/16 14:00 Ur Specific [place] 1.029 (1.001-1.035) 02/26/16 14:00 Urine Protein Negative (NEGATIVE) 02/26/16 14:00 Urine Glucose (UA) Negative (NEGATIVE) 02/26/16 14:00 Urine Ketones Trace (NEGATIVE) H 02/26/16 14:00 Urine Blood Negative (NEGATIVE) 02/26/16 14:00 Urine Nitrite Negative (NEGATIVE) 02/26/16 14:00 Urine Bilirubin Negative (NEGATIVE) 02/26/16 14:00 Urine Urobilinogen Negative E.U./dl (0.2-1.0) 02/26/16 14:00 Ur Leukocyte Esterase Trace (NEGATIVE) H 02/26/16 14:00 Urine RBC <1 /hpf (0-3) 02/26/16 14:00 Urine WBC <1 /hpf (3-5) 02/26/16 14:00 Ur Epithelial Cells Rare /hpf (FEW) 02/26/16 14:00 Hyaline Casts 1 /lpf 02/26/16 14:00 Urine Mucus Few 02/26/16 14:00 RPR Titer Nonreactive (NONREACTIVE) 02/27/16 07:20 Assessment: 02/28/16 12:06 WITHDRAWAL SYMPTOM Plan: CONTINUE DETOX
[2016-02-28] MEDS ORDERED: ONDANSETRON *ODT* 4 MG TABLET SL PRN (13:45)
[2016-02-28] MEDS ORDERED: chlordiazePOXIDE 5 MG CAPSULE PO SCH (17:00)
--- NOTE | 2016-02-28 20:27 | PN ---
S Progress Note Note: RECEIVED NURSE CALL C/O NAUSEA DISCONTINUE MOTRIN BEGIN ZANTAC RECOMMEND OFFER ZOFRAN PRN INCREASE ORAL FLUID CONTINUE DETOX
[2016-02-28] MEDS: THIAMINE HCL 100 MG TABLET (FP) PO SCH (23:19)
[2016-02-28] MEDS: RANITIDINE HCL 150 MG TABLET (FP) PO SCH (23:19)
[2016-02-29] MEDS ORDERED: TRIMETHOBENZAMIDE HCL 200MG/2ML INJ IM ONE (11:11)
[2016-02-29] MEDS: PRENATAL VITAMINS W/ FOLIC ACID TABLET (FP) PO SCH (11:12)
[2016-02-29] MEDS: RANITIDINE HCL 150 MG TABLET (FP) PO SCH ×2 (11:12→22:37)
[2016-02-29] MEDS: METHADONE HCL 5 MG TABLET (FOR DETOX USE ONLY) PO SCH (11:12)
[2016-02-29] MEDS: diazePAM 5 MG TABLET PO SCH ×2 (11:12→22:55)
--- NOTE | 2016-02-29 11:15 | PN ---
BHS Progress Note (SOAP) Subjective: interrupted sleep, sweats, nausea, vomiting Objective: 02/29/16 11:13 Vital Signs Temperature 98.8 F 02/29/16 10:08 Pulse Rate 112 H 02/29/16 10:08 Respiratory Rate 16 02/29/16 10:08 Blood Pressure 129/88 02/29/16 10:08 O2 Sat by Pulse Oximetry (%) Laboratory Tests 02/26/16 02/27/16 02/27/16 14:00 07:20 07:20 WBC 6.1 RBC 4.96 Hgb 14.6 Hct 43.8 MCV 88.2 MCHC 33.3 RDW 13.8 Plt Count 269 MPV 8.8 Sodium 138 Potassium 4.3 Chloride 105 Carbon Dioxide 28 Anion Gap 5 L BUN 12 Creatinine 0.8 Creat Clearance w eGFR > 60 Random Glucose 110 H Calcium 8.8 Total Bilirubin 0.4 D AST 11 L D ALT 16 Alkaline Phosphatase 79 Total Protein 6.6 Albumin 3.5 Urine Color Yellow Urine Appearance Slcloudy Urine pH 5.0 Ur Specific [place] 1.029 Urine Protein Negative Urine Glucose (UA) Negative Urine Ketones Trace H Urine Blood Negative Urine Nitrite Negative Urine Bilirubin Negative Urine Urobilinogen Negative Ur Leukocyte Esterase Trace H Urine RBC <1 Urine WBC <1 Ur Epithelial Cells Rare Hyaline Casts 1 Urine Mucus Few RPR Titer 02/27/16 07:20 WBC RBC Hgb Hct MCV MCHC RDW Plt Count MPV Sodium Potassium Chloride Carbon Dioxide Anion Gap BUN Creatinine Creat Clearance w eGFR Random Glucose Calcium Total Bilirubin AST ALT Alkaline Phosphatase Total Protein Albumin Urine Color Urine Appearance Urine pH Ur Specific [place] Urine Protein Urine Glucose (UA) Urine Ketones Urine Blood Urine Nitrite Urine Bilirubin Urine Urobilinogen Ur Leukocyte Esterase Urine RBC Urine WBC Ur Epithelial Cells Hyaline Casts Urine Mucus RPR Titer Nonreactive pt aox3 appearing ill, ambulating Assessment: 02/29/16 11:14 withdrawl sx's Plan: cont. detox increase fluids tigan 200mg now ensure bid
[2016-02-29] MEDS ORDERED: chlordiazePOXIDE HCL 10 MG CAPSULE PO SCH (17:00)
[2016-02-29] MEDS: diazePAM 5 MG TABLET PO PRN (19:05)
[2016-02-29] MEDS: THIAMINE HCL 100 MG TABLET (FP) PO SCH (22:37)
[2016-03-01] MEDS: diazePAM 5 MG TABLET PO PRN (07:05)
--- NOTE | 2016-03-01 09:38 | PN ---
S Progress Note (SOAP) Subjective: nausea ,vomiting , anorexia x 2 days (despite multiple doses of tigan im and zofran s/l ) Objective: 03/01/16 09:33 Vital Signs Temperature 96.6 F L 03/01/16 06:24 Pulse Rate 60 03/01/16 06:24 Respiratory Rate 16 03/01/16 06:24 Blood Pressure 100/65 03/01/16 06:24 O2 Sat by Pulse Oximetry (%) 9:20 am bp 135/86, p 123/m , r 18. t 98.2 Laboratory Last Values WBC 6.1 K/mm3 (4.0-10.0) 02/27/16 07:20 RBC 4.96 M/mm3 (3.60-5.2) 02/27/16 07:20 Hgb 14.6 GM/dL (10.7-15.3) 02/27/16 07:20 Hct 43.8 % (32.4-45.2) 02/27/16 07:20 MCV 88.2 fl (80-96) 02/27/16 07:20 MCHC 33.3 g/dl (32.0-36.0) 02/27/16 07:20 RDW 13.8 % (11.6-15.6) 02/27/16 07:20 Plt Count 269 K/MM3 (134-434) 02/27/16 07:20 MPV 8.8 fl (7.5-11.1) 02/27/16 07:20 Sodium 138 mmol/L (136-145) 02/27/16 07:20 Potassium 4.3 mmol/L (3.5-5.1) 02/27/16 07:20 Chloride 105 mmol/L (98-107) 02/27/16 07:20 Carbon Dioxide 28 mmol/L (21-32) 02/27/16 07:20 Anion Gap 5 (8-16) L 02/27/16 07:20 BUN 12 mg/dL (7-18) 02/27/16 07:20 Creatinine 0.8 mg/dL (0.55-1.02) 02/27/16 07:20 Creat Clearance w eGFR > 60 (>60) 02/27/16 07:20 Random Glucose 110 mg/dL (74-106) H 02/27/16 07:20 Calcium 8.8 mg/dL (8.5-10.1) 02/27/16 07:20 Total Bilirubin 0.4 mg/dL (0.2-1.0) D 02/27/16 07:20 AST 11 U/L (15-37) L D 02/27/16 07:20 ALT 16 U/L (12-78) 02/27/16 07:20 Alkaline Phosphatase 79 U/L (45-117) 02/27/16 07:20 Total Protein 6.6 g/dl (6.4-8.2) 02/27/16 07:20 Albumin 3.5 g/dl (3.4-5.0) 02/27/16 07:20 Urine Color Yellow 02/26/16 14:00 Urine Appearance Slcloudy 02/26/16 14:00 Urine pH 5.0 (5.0-8.0) 02/26/16 14:00 Ur Specific [place] 1.029 (1.001-1.035) 02/26/16 14:00 Urine Protein Negative (NEGATIVE) 02/26/16 14:00 Urine Glucose (UA) Negative (NEGATIVE) 02/26/16 14:00 Urine Ketones Trace (NEGATIVE) H 02/26/16 14:00 Urine Blood Negative (NEGATIVE) 02/26/16 14:00 Urine Nitrite Negative (NEGATIVE) 02/26/16 14:00 Urine Bilirubin Negative (NEGATIVE) 02/26/16 14:00 Urine Urobilinogen Negative E.U./dl (0.2-1.0) 02/26/16 14:00 Ur Leukocyte Esterase Trace (NEGATIVE) H 02/26/16 14:00 Urine RBC <1 /hpf (0-3) 02/26/16 14:00 Urine WBC <1 /hpf (3-5) 02/26/16 14:00 Ur Epithelial Cells Rare /hpf (FEW) 02/26/16 14:00 Hyaline Casts 1 /lpf 02/26/16 14:00 Urine Mucus Few 02/26/16 14:00 RPR Titer Nonreactive (NONREACTIVE) 02/27/16 07:20 pt aox3 appearing uncomfortable , vomiting ( blood in vomitus approx - 3 tsp) skin- anicteric abd- soft ,mild ruq-epiastric tenderness , no rebound , bs ++ , 03/01/16 09:42 Assessment: 03/01/16 09:38 nausea , vomiting upper gi bleed dehydration h/o asthma opioid dep crack dep alcohol abuse 03/01/16 09:41 03/01/16 09:42 Plan: pt requiring further eval in ED signed out to Halie Forrest MD in ED empresss ambulette activated cont detox.
[2016-03-01] MEDS: diazePAM 5 MG TABLET PO SCH ×2 (09:49→22:27)
[2016-03-01] MEDS ORDERED: METHADONE HCL 10 MG TABLET (FOR DETOX USE ONLY) PO SCH (10:00)
[2016-03-01] MEDS: RANITIDINE HCL 150 MG TABLET (FP) PO SCH ×2 (10:00→22:27)
[2016-03-01] MEDS: PRENATAL VITAMINS W/ FOLIC ACID TABLET (FP) PO SCH (10:00)
[2016-03-01] MEDS ORDERED: ONDANSETRON *ODT* 4 MG TABLET SL PRN (16:56)
--- NOTE | 2016-03-01 17:00 | PN ---
[facility] Progress Note Note: PT. WAS SENT TO ED FOR EVALUATION OF ABD. PAIN. W/U NEGATIVE FOR PANCREATITIS, IM TORADOL GIVEN FOR PAIN WITH GOOD RESPONSE. Vital Signs - 8 hr 03/01/16 10:01 Temperature 98.2 F Pulse Rate 123 H Respiratory 18 Rate Blood Pressure 135/86 Laboratory Tests 02/26/16 02/27/16 02/27/16 14:00 07:20 07:20 WBC 6.1 RBC 4.96 Hgb 14.6 Hct 43.8 MCV 88.2 MCHC 33.3 RDW 13.8 Plt Count 269 MPV 8.8 Sodium 138 Potassium 4.3 Chloride 105 Carbon Dioxide 28 Anion Gap 5 L BUN 12 Creatinine 0.8 Creat Clearance w eGFR > 60 Random Glucose 110 H Calcium 8.8 Total Bilirubin 0.4 D AST 11 L D ALT 16 Alkaline Phosphatase 79 Total Protein 6.6 Albumin 3.5 Urine Color Yellow Urine Appearance Slcloudy Urine pH 5.0 Ur Specific [place] 1.029 Urine Protein Negative Urine Glucose (UA) Negative Urine Ketones Trace H Urine Blood Negative Urine Nitrite Negative Urine Bilirubin Negative Urine Urobilinogen Negative Ur Leukocyte Esterase Trace H Urine RBC <1 Urine WBC <1 Ur Epithelial Cells Rare Hyaline Casts 1 Urine Mucus Few RPR Titer 02/27/16 07:20 WBC RBC Hgb Hct MCV MCHC RDW Plt Count MPV Sodium Potassium Chloride Carbon Dioxide Anion Gap BUN Creatinine Creat Clearance w eGFR Random Glucose Calcium Total Bilirubin AST ALT Alkaline Phosphatase Total Protein Albumin Urine Color Urine Appearance Urine pH Ur Specific [place] Urine Protein Urine Glucose (UA) Urine Ketones Urine Blood Urine Nitrite Urine Bilirubin Urine Urobilinogen Ur Leukocyte Esterase Urine RBC Urine WBC Ur Epithelial Cells Hyaline Casts Urine Mucus RPR Titer Nonreactive WBC IN ED 13,400 AND LIPASE 373 WNL. PT. IS STILL C/O NAUSEA P : ZOFRAN
[2016-03-01] MEDS ORDERED: ONDANSETRON *ODT* 4 MG TABLET SL ONE (17:15)
[2016-03-01] MEDS: THIAMINE HCL 100 MG TABLET (FP) PO SCH (22:55)
[2016-03-02] MEDS ORDERED: METHADONE HCL 5 MG TABLET (FOR DETOX USE ONLY) PO SCH (06:00)
[2016-03-02 06:25] VITALS: BP 144/92; PULSE 72; TEMP 98.3
--- NOTE | 2016-03-02 08:45 | DS ---
[facility] Detox Discharge Summary Admission Date: 02/26/16 Discharge Date: 03/02/16 - History Present History: Alcohol Dependence, Cocaine Dependence, Opioid Dependence - Physical Exam Results Vital Signs: Vital Signs Temperature 98.3 F 03/02/16 06:24 Pulse Rate 72 03/02/16 06:24 Respiratory Rate 18 03/02/16 06:24 Blood Pressure 144/92 03/02/16 06:24 O2 Sat by Pulse Oximetry (%) - Treatment Hospital Course: Detox Protocol Followed, Detoxed Safely, Responded well, Discharged Condition Good, Rehab Referral Accepted - Medication Discharge Medications: Ambulatory Orders Acetaminophen [Tylenol] 650 mg PO Q4H PRN 03/01/16 Albuterol Sulfate Inhaler - [Ventolin Hfa Inhaler -] 1 - 2 inh PO Q4H 03/01/16 Diazepam [Valium] 5 mg PO DAILY 03/01/16 Diazepam [Valium] 5 mg PO ONCE 03/01/16 Diphenhydramine [Benadryl -] 50 mg PO HS 03/01/16 Guaifenesin Dm [Robitussin Dm] 10 ml PO Q6H 03/01/16 Hydroxyzine Pamoate [Vistaril -] 50 mg PO TID 03/01/16 Loperamide HCl [Imodium -] 4 mg PO DAILY 03/01/16 Mag Hydrox/Al Hydrox/Simeth [Mylanta *Suspension*] 30 ml PO Q6H 03/01/16 Magnesium Citrate [Citroma -] 300 ml PO Q48H 03/01/16 Magnesium Hydrox 2400MG/30Ml [Milk of Magnesia -] 30 ml PO PRN 03/01/16 Menthol/Phenol [Cepastat Lozenge -] 1 each MM Q4H 03/01/16 Methadone [Dolophine -] 5 mg PO DAILY 03/01/16 Methadone [Dolophine -] 10 mg PO DAILY 03/01/16 Ranitidine HCl [Zantac] 150 mg PO BID 03/01/16 Thiamine HCl [B-1] 100 mg PO HS 03/01/16 - Diagnosis (1) Alcohol dependence with uncomplicated withdrawal Current Visit: Yes Status: Chronic (2) Asthma Current Visit: Yes Status: Chronic Qualifiers: Asthma severity: mild intermittent Asthma complication type: with status asthmaticus Qualified Code(s): J45.22 - Mild intermittent asthma with status asthmaticus (3) Cocaine dependence Current Visit: Yes Status: Chronic Qualifiers: Substance use status: uncomplicated Qualified Code(s): F14.20 - Cocaine dependence, uncomplicated (4) Opioid dependence with withdrawal Current Visit: Yes Status: Chronic (5) Vaginal trichomoniasis Current Visit: Yes Status: Chronic (6) Epigastric abdominal pain Current Visit: No Status: Acute (7) Nausea & vomiting Current Visit: Yes Status: Resolved Qualifiers: Vomiting Intractability: non-intractable (8) Substance induced mood disorder Current Visit: No Status: Acute (9) Substance-induced sleep disorder Current Visit: No Status: Acute (10) Weight loss Current Visit: No Status: Acute (11) Nicotine dependence Current Visit: Yes Status: Chronic Qualifiers: Nicotine product type: cigarettes Substance use status: uncomplicated Qualified Code(s): F17.210 - Nicotine dependence, cigarettes, uncomplicated (12) Drug-induced mood disorder Current Visit: No Status: Suspected (13) Substance or medication-induced sleep disorder, insomnia type Current Visit: No Status: Suspected - AMA Did Patient Leave Against Medical Advice: No
[2016-03-02] MEDS ORDERED: diazePAM 5 MG TABLET PO SCH (10:00)
== END 2016-03-02 09:08 | disposition home or self-care (01) | DRG 773 ==
LOC: YASAS 09:50 → Y6N 11:13
PROVIDERS: ADMIT Internal Medicine; ATTEND Internal Medicine
PROC: HZ2ZZZZ Detoxification Services for Substance Abuse Treatment (ICD-10-PCS; principal; 2016-02-26)
DX: F11.23 Opioid dependence with withdrawal (principal); F10.230 Alcohol dependence with withdrawal, uncomplicated; F14.20 Cocaine dependence, uncomplicated; F17.210 Nicotine dependence, cigarettes, uncomplicated; F19.24 Other psychoactive substance dependence with psychoactive substance-induced mood disorder; F19.282 Other psychoactive substance dependence with psychoactive substance-induced sleep disorder; J45.909 Unspecified asthma, uncomplicated; A59.01 Trichomonal vulvovaginitis; R10.13 Epigastric pain; R11.2 Nausea with vomiting, unspecified; E86.0 Dehydration; K92.2 Gastrointestinal hemorrhage, unspecified; Z87.898 Personal history of other specified conditions
CPT/HCPCS: 36415; 80053; 81003; 81015; 85027; 86593; 93005; 93010

== ENCOUNTER 2016-03-01 10:40 | Emergency (ER) | payer OTHER ==
--- NOTE | 2016-03-01 11:07 | PDOC ---
History of Present Illness - History of Present Illness Initial Comments: 03/01/16 11:27 The patient is a 35 year old female with significant past medical history of gastritis and polysubstance abuse who presents to the emergency department from [facility] with nausea, vomiting, and abdominal pain for 2 days. The patient has been at [facility] for the last 6 days detoxing from alcohol and heroin. The patient states her pain is localized to the epigastric region and does not radiate. Her pain is described as twisting and it is intermittent in nature. She states she is vomiting for the last 2 days and reports about 3 episodes of vomiting per day. Her vomit is nonbloody. She denies any diarrhea. She is unable to keep any food down. The patient denies any alleviating or aggravating factors. She denies any chest pain or shortness of breath. She denies any dysuria, hematuria, or frequency. She denies any fevers or chills. No sick contacts. Patient smokes 2 packs per day. Surgical history: 3 c-sections Allergies: Sulfa <Mary Ellen Aponte - Last Filed: 03/01/16 11:27> - General History Source: Patient, Old Records Exam Limitations: No Limitations <July Blue - Last Filed: 03/01/16 14:37> - General Stated Complaint: VOMITING Time Seen by Provider: 03/01/16 10:57 Past History <Mary Ellen Aponte - Last Filed: 03/01/16 11:27> - Past Medical History Anemia: No Asthma: Yes (on albuterol inhaler) Cancer: No Cardiac Disorders: No CVA: No COPD: No CHF: No Dementia: No Diabetes: No GI Disorders: No Disorders: No HTN: No Hypercholesterolemia: No Kidney Stones: No Liver Disease: No Suicide Attempt (Hx): No Seizures: No Thyroid Disease: No - Surgical History Abdominal Surgery: No Appendectomy: No Cardiac Surgery: No Cholecystectomy: No Lung Surgery: No Neurologic Surgery: No Orthopedic Surgery: No - Reproductive History PID: No - Psycho/Social/Smoking Cessation Hx Anxiety: No Suicidal Ideation: No Smoking History: Current every day smoker Have you smoked in the past 12 months: Yes Number of Cigarettes Smoked Daily: 40 'Breaking Loose' booklet given: 02/26/16 (given on floor) Hx Alcohol Use: Yes Drug/Substance Use Hx: Yes Substance Use Type: Alcohol, Cocaine, Heroin Hx Substance Use Treatment: Yes (detox, rehab, methadone, suboxone) <July Blue - Last Filed: 03/01/16 14:37> - Past Medical History Allergies/Adverse Reactions: Allergies Allergy/AdvReac Type Severity Reaction Status Date / Time Sulfa (Sulfonamide Allergy Unknown Verified 03/01/16 11:03 Antibiotics) [Sulfa(Sulfonamide Antibiotics)] sulfamethoxazole Allergy Unknown Verified 03/01/16 11:03 [From Bactrim] trimethoprim [From Bactrim] Allergy Unknown Verified 03/01/16 11:03 Home Medications: Ambulatory Orders Acetaminophen [Tylenol] 650 mg PO Q4H PRN 03/01/16 Albuterol Sulfate Inhaler - [Ventolin Hfa Inhaler -] 1 - 2 inh PO Q4H 03/01/16 Diazepam [Valium] 5 mg PO DAILY 03/01/16 Diazepam [Valium] 5 mg PO ONCE 03/01/16 Diphenhydramine [Benadryl -] 50 mg PO HS 03/01/16 Guaifenesin Dm [Robitussin Dm] 10 ml PO Q6H 03/01/16 Hydroxyzine Pamoate [Vistaril -] 50 mg PO TID 03/01/16 Loperamide HCl [Imodium -] 4 mg PO DAILY 03/01/16 Mag Hydrox/Al Hydrox/Simeth [Mylanta *Suspension*] 30 ml PO Q6H 03/01/16 Magnesium Citrate [Citroma -] 300 ml PO Q48H 03/01/16 Magnesium Hydrox 2400MG/30Ml [Milk of Magnesia -] 30 ml PO PRN 03/01/16 Menthol/Phenol [Cepastat Lozenge -] 1 each MM Q4H 03/01/16 Methadone [Dolophine -] 5 mg PO DAILY 03/01/16 Methadone [Dolophine -] 10 mg PO DAILY 03/01/16 Ranitidine HCl [Zantac] 150 mg PO BID 03/01/16 Thiamine HCl [B-1] 100 mg PO HS 03/01/16 Review of Systems - Review of Systems Able to Perform ROS?: Yes Comments:: 03/01/16 11:27 GENERAL/CONSTITUTIONAL: No fever or chills. No weakness. HEAD, EYES, EARS, NOSE AND THROAT: No change in vision. No ear pain or discharge. No sore throat. CARDIOVASCULAR: No chest pain or shortness of breath. RESPIRATORY: No cough, wheezing, or hemoptysis. GASTROINTESTINAL: +Nausea, +vomiting, +abdominal pain. No diarrhea or constipation. GENITOURINARY: No dysuria, frequency, or change in urination. MUSCULOSKELETAL: No joint or muscle swelling or pain. No neck or back pain. SKIN: No rash NEUROLOGIC: No headache, vertigo, loss of consciousness, or change in strength/ sensation. ENDOCRINE: No increased thirst. No abnormal weight change. HEMATOLOGIC/LYMPHATIC: No anemia, easy bleeding, or history of blood clots. ALLERGIC/IMMUNOLOGIC: No hives or skin allergy. <Mary Ellen Aponte - Last Filed: 03/01/16 11:27> *Physical Exam - Vital Signs Last Vital Signs Temp Pulse Resp BP Pulse Ox 98.3 F 83 18 126/95 100 03/01/16 11:04 03/01/16 11:04 03/01/16 11:04 03/01/16 11:04 03/01/16 11:04 - Physical Exam Comments: 03/01/16 11:28 GENERAL: Awake, alert, and fully oriented, in no acute distress HEAD: No signs of trauma EYES: PERRLA, EOMI, sclera anicteric, conjunctiva clear ENT: Auricles normal inspection, hearing grossly normal, nares patent, oropharynx clear without exudates. Moist mucosa NECK: Normal ROM, supple, no lymphadenopathy, JVD, or masses LUNGS: Breath sounds equal, clear to auscultation bilaterally. No wheezes, and no crackles HEART: Regular rate and rhythm, normal S1 and S2, no murmurs, rubs or gallops ABDOMEN: +Epigastric tenderness, no guarding, no rebound. Soft, normoactive bowel sounds. No masses EXTREMITIES: Normal range of motion, no edema. No clubbing or cyanosis. No cords, erythema, or tenderness NEUROLOGICAL: Cranial nerves II through XII grossly intact. Normal speech, normal gait SKIN: Warm, Dry, normal turgor, no rashes or lesions noted. <Mary Ellen Aponte - Last Filed: 03/01/16 11:27> ED Treatment Course - LABORATORY CBC & Chemistry Diagram: 03/01/16 11:21 03/01/16 11:21 <Mary Ellen Aponte - Last Filed: 03/01/16 11:27> - LABORATORY CBC & Chemistry Diagram: 03/01/16 11:21 03/01/16 11:21 <July Blue - Last Filed: 03/01/16 14:37> Medical Decision Making - Medical Decision Making 03/01/16 11:06 35-year-old female with history of GERD and polysubstance abuse including alcohol, crack cocaine, heroin who presents to the emergency department from detox with complaints of 2 day history of epigastric pain, nausea and vomiting. Differential diagnosis includes but is not limited to: Pancreatitis, gastritis, cholelithiasis/cholecystitis, drug withdrawal syndrome, dehydration, toxic/ metabolic derangement. Plan: 1. Labs 2. IV fluids for hydration 3. Abdominal ultrasound 4. Antiemetics 5. Pain management 6. Observe and reevaluate 03/01/16 14:35 Addendum: All of the patient's labs were reviewed and are noted in the EMR. Her ultrasound is negative for acute intra-abdominal pathology although her white blood cell count is elevated at 13.4. The patient's pain is improved but she says that she still feels nauseated. She is drinking water without vomiting. The plan is to send her back to the detox center for further management of her alcohol, crack, and opiates. <July Blue - Last Filed: 03/01/16 14:37> *DC/Admit/Observation/Transfer - Attestations Scribe Attestion: 03/01/16 11:28 Documentation prepared by Mary Ellen Aponte, acting as biomedical equipment tech for July Blue MD. <Mary Ellen Aponte - Last Filed: 03/01/16 11:27> - Discharge Dispostion Admit: No - Attestations Physician Attestion: 03/01/16 11:07 I, Dr. July Blue, attest that the scribes documentation that appears above has been prepared under my direction and personally reviewed by me in its entirety. I confirmed that the note above accurately reflects all work, treatment, procedures, and medical decision-making performed by me. <July Blue - Last Filed: 03/01/16 14:37> Diagnosis at time of Disposition: Epigastric abdominal pain, Nausea & vomiting - Discharge Dispostion Disposition: TRANSFER ACUTE CARE/OTHER HOSP Condition at time of disposition: Stable
[2016-03-01 11:08] VITALS: TEMP 98.3; BMI 21.9
[2016-03-01] MEDS ORDERED: FAMOTIDINE 20 MG/50 ML IVPB 50 ML IVPB ONE ×2 (11:08→12:12)
[2016-03-01] MEDS ORDERED: SODIUM CHLORIDE 1,000 ML IV STA (11:08)
[2016-03-01] MEDS ORDERED: ONDANSETRON 4 MG/2 ML VIAL IVPUSH ONE (11:08)
[2016-03-01 11:33] LABS: BASOPHIL 0.6 % (0-2.0); MCH 28.5 pg (25.7-33.7); MCHC 32.5 g/dl (32.0-36.0); MEAN CELL VOLUME 87.7 fl (80-96); MEAN PLT VOLUME 8.5 fl (7.5-11.1); NEUTROPHILS 81.8 % (42.8-82.8); PLATELET COUNT 286 K/MM3 (134-434); RDW 13.8 % (11.6-15.6); WHITE BLOOD COUNT 13.4 K/mm3 (4.0-10.0)
[2016-03-01 12:11] LABS: ALBUMIN 4.3 g/dl (3.4-5.0); ANION GAP 13 (8-16); CALCIUM 9.7 mg/dL (8.5-10.1); CO2 27 mmol/L (21-32); CREATININE 0.7 mg/dL (0.55-1.02); GLUCOSE,RANDOM 112 mg/dL (74-106); SGOT/AST 12 U/L (15-37); SGPT/ALT 16 U/L (12-78)
[2016-03-01] MEDS ORDERED: ONDANSETRON 4 MG/2 ML VIAL ONE (12:12)
[2016-03-01 12:14] LABS: ALK PHOS 98 U/L (45-117); BILIRUBIN,TOTAL 0.6 mg/dL (0.2-1.0); TOT PROT 8.1 g/dl (6.4-8.2); TROPONIN I < 0.02 ng/ml (0.00-0.05)
[2016-03-01 15:46] VITALS: BP 145/78; PULSE 80
--- NOTE | 2016-03-06 16:25 | EKG ---
Test Reason : Blood Pressure : / mmHG Vent. Rate : 081 BPM Atrial Rate : 081 BPM P-R Int : 144 ms QRS Dur : 086 ms QT Int : 364 ms P-R-T Axes : 049 069 053 degrees QTc Int : 422 ms NORMAL SINUS RHYTHM NORMAL ECG WHEN COMPARED WITH ECG OF 26-FEB-2016 12:54, T WAVE INVERSION NOW EVIDENT IN ANTERIOR LEADS Confirmed by YOCASTA MONTALVO MD ([id number]) on 03/06/2016 4:24:53 PM Referred By: Confirmed By:YOCASTA MONTALVO MD
== END 2016-03-01 15:46 | disposition other institution (70) ==
LOC: JER 10:40
PROC: 3E033GC Introduction of Other Therapeutic Substance into Peripheral Vein, Percutaneous Approach (ICD-10-PCS; principal; 2016-03-01)
PROC: 3E0337Z Introduction of Electrolytic and Water Balance Substance into Peripheral Vein, Percutaneous Approach (ICD-10-PCS; 2016-03-01)
DX: R10.13 Epigastric pain (principal); R11.2 Nausea with vomiting, unspecified; K21.9 Gastro-esophageal reflux disease without esophagitis; F19.10 Other psychoactive substance abuse, uncomplicated; F17.210 Nicotine dependence, cigarettes, uncomplicated
CPT/HCPCS: 36415; 76700-TC; 80053; 81003; 82550; 83690; 84484; 84703; 85025; 93005; 93010; 96361; 96365; 96375; 99283-25

== ENCOUNTER 2016-05-09 08:23 | Inpatient (IN) | payer OTHER ==
[2016-05-09 09:16] VITALS: BMI 22.6
--- NOTE | 2016-05-09 11:14 | HP ---
COWS - Scale Resting Pulse: 0= [place] 80 or Below Sweatin=Flushed/Facial Moisture Restless Observation: 3= Extraneous Movement Pupil Size: 1= Pupils >than Normal Bone or Joint Aches: 2= Severe Diffuse Aches Runny Nose/ Eye Tearin= Runny Nose/Eyes GI Upset > 30mins: 2= Nausea/Diarrhea Tremor Observation: 2= Slight Tremor Visible Yawning Observation: 0= None Anxiety or Irritability: 2=Irritable/Anxious Goose Flesh Skin: 3=Piloerection COWS Score: 19 CIWA Score - CIWA Score Nausea/Vomitin Muscle Tremors: 4-Moderate,w/Arms Extend Anxiety: 4-Mod. Anxious/Guarded Agitation: 3 Paroxysmal Sweats: 3 Orientation: 3-Disoriented Date>2 days Tacttile Disturbances: 0-None Auditory Disturbances: 0-None Visual Disturbances: 0-None Headache: 2-Mild CIWA-Ar Total Score: 22 Admission ROS BHS - HPI Chief Complaint: Withdrawal sx. Allergies/Adverse Reactions: Allergies Allergy/AdvReac Type Severity Reaction Status Date / Time Sulfa (Sulfonamide Allergy Unknown Verified 05/09/16 09:46 Antibiotics) [Sulfa(Sulfonamide Antibiotics)] sulfamethoxazole Allergy Unknown Verified 05/09/16 09:46 [From Bactrim] trimethoprim [From Bactrim] Allergy Unknown Verified 05/09/16 09:46 History of Present Illness: 35 y/o woman with a long hx. of heroin & alcohol dependence is admitted for detox. Pt. has been in previous detox,reports 2 yrs drug free & sober while seeing a therapist. Exam Limitations: No Limitations - Ebola screening Have you traveled outside of the country in the last 21 days: No Have you had contact with anyone from an Ebola affected area: No Have you been sick,other than usual withdrawal symptoms: No Do you have a fever: No - Review of Systems Constitutional: Diaphoresis EENT: reports: Nose Congestion Respiratory: reports: No Symptoms reported Cardiac: reports: No Symptoms Reported GI: reports: Nausea, Abdominal cramping : reports: No Symptoms Reported Musculoskeletal: reports: Back Pain, Joint Pain, Muscle Pain Integumentary: reports: Sweating Neuro: reports: Tremors Endocrine: reports: No Symptoms Reported Hematology: reports: No Symptoms Reported Psychiatric: reports: No Sypmtoms Reported Other Systems: Reviewed and Negative Patient History - Patient Medical History Hx Anemia: No Hx Asthma: No Hx Chronic Obstructive Pulmonary Disease (COPD): No Hx Cancer: No Hx Cardiac Disorders: No Hx Congestive Heart Failure: No Hx Hypertension: No Hx Hypercholesterolemia: No Hx Pacemaker: No HX Cerebrovascular Accident: No Hx Seizures: No Hx Dementia: No Hx Diabetes: No Hx Gastrointestinal Disorders: No Hx Liver Disease: No Hx Genitourinary Disorders: No Hx Sexually Transmitted Disorders: No (recurrent vaginosis) Hx Renal Disease (ESRD): No Hx Thyroid Disease: No Hx Human Immunodeficiency Virus (HIV): No Hx Hepatitis C: No Hx Depression: No Hx Suicide Attempt: No Hx Bipolar Disorder: No Hx Schizophrenia: No Other Medical History: Anxiety/PTSD ? - Patient Surgical History Past Surgical History: No Hx Neurologic Surgery: No Hx Cataract Extraction: No Hx Cardiac Surgery: No Hx Lung Surgery: No Hx Breast Surgery: No Hx Breast Biopsy: No Hx Abdominal Surgery: No Hx Appendectomy: No Hx Cholecystectomy: No Hx Genitourinary Surgery: No Hx Section: Yes (X3) Hx Orthopedic Surgery: No Anesthesia Reaction: No - PPD History Previous Implant?: Yes Documented Results: Negative w/proof Implanted On Prior R Admission?: Yes Date: 07/25/15 Results: 0 MM PPD to be Administered?: No - Reproductive History Last Menstrual Period: 02/12/16 Patient : No - Smoking Cessation Smoking history: Current every day smoker Have you smoked in the past 12 months: Yes Aproximately how many cigarettes per day: 20 Hx Chewing Tobacco Use: No Initiated information on smoking cessation: Yes 'Breaking Loose' booklet given: 05/09/16 - Substance & Tx. History Hx Alcohol Use: Yes Hx Substance Use: Yes Substance Use Type: Alcohol, Cocaine, Heroin Hx Substance Use Treatment: Yes (Detox) - Substances Abused Heroin Route: Inhalation Frequency: Daily Amount used: 20 BAGS Age of first use: 30 Date of Last Use: 05/08/16 Alcohol Route: Oral Frequency: Daily Amount used: 1 PINT TEQUILLA Age of first use: 14 Date of Last Use: 05/08/16 Crack Route: Smoking Frequency: Daily Amount used: $60 Age of first use: 21 Date of Last Use: 05/08/16 Family Disease History - Family Disease History Family Disease History: Diabetes: Grandparent (LUNG), Brother, Heart Disease: Father ( [place]), [place]: Grandparent, Other: Mother (ALCOHOL), Sister (DSA) Admission Physical Exam [facility] - Vital Signs Vital Signs: Vital Signs - 24 hr 05/09/16 09:11 Temperature 97.2 F L Pulse Rate 80 Respiratory 20 Rate Blood Pressure 116/65 - Physical General Appearance: Yes: Tremorous, Irritable, Sweating, Anxious HEENTM: Yes: Nasal Congestion, Rhinorrhea Respiratory: Yes: Chest Non-Tender, Lungs Clear, Normal Breath Sounds Neck: Yes: Supple Breast: Yes: Breast Exam Deferred Cardiology: Yes: Regular Rhythm, Regular Rate, S1, S2 Abdominal: Yes: Normal Bowel Sounds, Non Tender, Soft Genitourinary: Yes: Within Normal Limits Back: Yes: Within Normal Limits Musculoskeletal: Yes: Within Normal Limits Neurological: Yes: Fully Oriented, Alert Integumentary: Yes: Diaphoresis Lymphatic: Yes: Within Normal Limits - Diagnostic (1) Alcohol dependence with uncomplicated withdrawal Current Visit: Yes Status: Chronic (2) Asthma Current Visit: Yes Status: Chronic Qualifiers: Asthma severity: mild intermittent Asthma complication type: with status asthmaticus Qualified Code(s): J45.22 - Mild intermittent asthma with status asthmaticus (3) Cocaine dependence Current Visit: Yes Status: Chronic Qualifiers: Substance use status: uncomplicated Qualified Code(s): F14.20 - Cocaine dependence, uncomplicated (4) Opioid dependence with withdrawal Current Visit: Yes Status: Chronic (5) Bacterial vaginosis Current Visit: Yes Status: Acute Cleared for Admission [facility] - Detox or Rehab [facility] Level of Care: Medically Managed Detox Regimen/Protocol: Methadone/Valium [facility] Breath Alcohol Content Breath Alcohol Content: 0.008 Urine Pregancy Test - Result Urine Test Results: Negative- NO Line Present Urine Drug Screen - Results Drug Screen Negative: No Urine Drug Screen Results: EVELIN-Cocaine, OPI-Opiates
[2016-05-09] MEDS ORDERED: P-EPHED 60MG/TRIPROLIDI 2.5MG TABLET PO PRN (11:29)
[2016-05-09] MEDS ORDERED: MAGNESIUM HYDROX 2400MG/30ML ORAL SUSPENSION 30 ML CUP PO PRN (11:29)
[2016-05-09] MEDS ORDERED: MAGNESIUM CITRATE 300 ML BOTTLE PO PRN (11:29)
[2016-05-09] MEDS ORDERED: MAG HYDROX/AL HYDROX/SIMETH 30 ML UNIT-DOSE CUP PO PRN (11:29)
[2016-05-09] MEDS ORDERED: IBUPROFEN 400 MG TABLET (FP) PO PRN (11:29)
[2016-05-09] MEDS ORDERED: diphenhydrAMINE HCL 50 MG CAPSULE PO PRN (11:29)
[2016-05-09] MEDS ORDERED: LOPERAMIDE HCL 2 MG CAPSULE PO PRN (11:29)
[2016-05-09] MEDS ORDERED: hydrOXYzine PAMOATE 50 MG CAPSULE (FP) PO PRN (11:29)
[2016-05-09] MEDS ORDERED: ACETAMINOPHEN 325 MG TABLET (FP) PO PRN (11:29)
[2016-05-09] MEDS ORDERED: guaiFENesin/D-METHORPHAN HB 10 ML UNIT-DOSE CUPS PO PRN (11:29)
[2016-05-09] MEDS ORDERED: NICOTINE POLACRILEX 2 MG GUM BUC PRN (11:29)
[2016-05-09] MEDS ORDERED: MENTHOL/PHENOL 1 EACH UD MM PRN (11:29)
[2016-05-09] MEDS ORDERED: diazePAM 5 MG TABLET PO ONE (11:46)
[2016-05-09] MEDS ORDERED: METHADONE HCL 10 MG TABLET (FOR DETOX USE ONLY) PO ONE ×2 (11:48→23:00)
[2016-05-09] MEDS: metroNIDAZOLE 250 MG TABLET PO SCH ×2 (12:33→22:17)
[2016-05-09] MEDS: NICOTINE 21 MG/24 HOURS TOPICAL PATCH TD SCH (12:34)
[2016-05-09] MEDS: diazePAM 5 MG TABLET PO SCH ×2 (14:15→22:17)
--- NOTE | 2016-05-09 15:57 | EKG ---
Test Reason : Blood Pressure : / mmHG Vent. Rate : 079 BPM Atrial Rate : 079 BPM P-R Int : 162 ms QRS Dur : 098 ms QT Int : 378 ms P-R-T Axes : 058 067 051 degrees QTc Int : 433 ms SINUS RHYTHM WITH SINUS ARRHYTHMIA WITH OCCASIONAL PREMATURE VENTRICULAR COMPLEXES SEPTAL INFARCT , AGE UNDETERMINED ABNORMAL ECG WHEN COMPARED WITH ECG OF 01-MAR-2016 11:01, PREMATURE VENTRICULAR COMPLEXES ARE NOW PRESENT Confirmed by SELVIN MCCORMICK, YOCASTA ([id number]) on 05/09/2016 3:57:11 PM Referred By: Richard Abdullahi Confirmed By:YOCASTA MONTALVO MD
[2016-05-09 18:42] LABS: URINE APPEARANCE CLEAR; URINE BILIRUBIN NEGATIVE (NEGATIVE); URINE BLOOD NEGATIVE (NEGATIVE); URINE COLOR YELLOW; URINE GLUCOSE (UA) NEGATIVE (NEGATIVE); URINE KETONE NEGATIVE (NEGATIVE); URINE LEUK ESTERASE NEGATIVE (NEGATIVE); URINE NITRITE NEGATIVE (NEGATIVE); URINE PROTEIN NEGATIVE (NEGATIVE); URINE UROBILINOGEN NEGATIVE E.U./dl (0.2-1.0)
[2016-05-09] MEDS: THIAMINE HCL 100 MG TABLET (FP) PO SCH (22:18)
[2016-05-10] MEDS: diazePAM 5 MG TABLET PO SCH ×3 (06:14→23:40)
[2016-05-10 09:47] LABS: MCH 28.3 pg (25.7-33.7); MCHC 32.5 g/dl (32.0-36.0); MEAN CELL VOLUME 86.9 fl (80-96); MEAN PLT VOLUME 9.7 fl (7.5-11.1); PLATELET COUNT 253 K/MM3 (134-434); RDW 13.6 % (11.6-15.6); WHITE BLOOD COUNT 13.3 K/mm3 (4.0-10.0)
[2016-05-10] MEDS ORDERED: METHADONE HCL 10 MG TABLET (FOR DETOX USE ONLY) PO SCH (10:00)
[2016-05-10] MEDS: PRENATAL VITAMINS W/ FOLIC ACID TABLET (FP) PO SCH (10:18)
[2016-05-10] MEDS: metroNIDAZOLE 250 MG TABLET PO SCH ×2 (10:18→23:40)
[2016-05-10] MEDS: NICOTINE 21 MG/24 HOURS TOPICAL PATCH TD SCH (10:20)
[2016-05-10] MEDS: diazePAM 5 MG TABLET PO PRN ×2 (10:20→19:11)
[2016-05-10 10:36] LABS: ALBUMIN 3.7 g/dl (3.4-5.0); ALK PHOS 89 U/L (45-117); ANION GAP 8 (8-16); BILIRUBIN,TOTAL 0.4 mg/dL (0.2-1.0); CALCIUM 8.8 mg/dL (8.5-10.1); CO2 31 mmol/L (21-32); CREATININE 0.7 mg/dL (0.55-1.02); GLUCOSE,RANDOM 92 mg/dL (74-106); SGOT/AST 12 U/L (15-37); SGPT/ALT 15 U/L (12-78); TOT PROT 6.5 g/dl (6.4-8.2)
[2016-05-10] MEDS ORDERED: cloNIDine HCL 0.1 MG TABLET PO ONE (11:03)
--- NOTE | 2016-05-10 11:03 | PN ---
[facility] CIWA - CIWA Score Nausea/Vomitin-Int. Nausea w/Dry Heave Muscle Tremors: 3 Anxiety: 4-Mod. Anxious/Guarded Agitation: 3 Paroxysmal Sweats: 3 Orientation: 0-Oriented Tacttile Disturbances: 2-Mild Itch/Numbness/Burn Auditory Disturbances: 0-None Visual Disturbances: 0-None Headache: 0-None Present CIWA-Ar Total Score: 19 BHS COWS - Scale Resting Pulse: 0= [place] 80 or Below Sweatin=Flushed/Facial Moisture Restless Observation: 1= Difficult to Sit Still Pupil Size: 1= Pupils >than Normal Bone or Joint Aches: 2= Severe Diffuse Aches Runny Nose/ Eye Tearin= Nasal Congestion GI Upset > 30mins: 2= Nausea/Diarrhea Tremor Observation of Outstretched Hands: 2= Slight Tremor Visible Yawning Observation: 0= None Anxiety or Irritability: 2=Irritable/Anxious Goose Flesh Skin: 0=Smooth Skin COWS Score: 13 S Progress Note (SOAP) Subjective: interrupted sleep, sweats, shakes , nausea, bodyaches Objective: 05/10/16 11:00 Vital Signs Temperature 98.1 F 05/10/16 10:00 Pulse Rate 91 H 05/10/16 10:00 Respiratory Rate 20 05/10/16 10:00 Blood Pressure 136/98 05/10/16 10:00 O2 Sat by Pulse Oximetry (%) Laboratory Tests 05/09/16 05/10/16 05/10/16 13:00 06:20 06:20 WBC 13.3 H RBC 4.67 Hgb 13.2 D Hct 40.6 D MCV 86.9 MCHC 32.5 RDW 13.6 Plt Count 253 MPV 9.7 D Sodium 140 Potassium 4.2 Chloride 101 Carbon Dioxide 31 Anion Gap 8 BUN 12 D Creatinine 0.7 Creat Clearance w eGFR > 60 Random Glucose 92 Calcium 8.8 Total Bilirubin 0.4 D AST 12 L ALT 15 Alkaline Phosphatase 89 Total Protein 6.5 Albumin 3.7 Urine Color Yellow Urine Appearance Clear Urine pH 5.0 Ur Specific [place] 1.027 Urine Protein Negative Urine Glucose (UA) Negative Urine Ketones Negative Urine Blood Negative Urine Nitrite Negative Urine Bilirubin Negative Urine Urobilinogen Negative Ur Leukocyte Esterase Negative pt aox3 in nad lying in bed Assessment: 03/29/17 11:01 withdrawal sxs muscle aches Plan: cont. detox increase fluids flexeril tid/prn clonidine 0.1
[2016-05-10] MEDS ORDERED: TRIMETHOBENZAMIDE HCL 200MG/2ML INJ IM PRN (12:14)
--- NOTE | 2016-05-10 15:22 | CONSULT ---
[facility] Psychiatric Consult - Data Date of interview: 05/10/16 Admission source: [facility] Identifying data: Another admission to [facility] for this 35 y/o AA female seeking detox treatment on for alcohol,heroin and cocaine dependence.Patient is single,a mother of two,currently homeless,unemployed and reportedly deprived of any source of income. Substance Abuse History: - Smoking Cessation. Smoking history: Current every day smoker. Have you smoked in the past 12 months: Yes. Aproximately how many cigarettes per day: 20. Hx Chewing Tobacco Use: No. Initiated information on smoking cessation: Yes. 'Breaking Loose' booklet given: 05/09/16. - Substance & Tx. History. Hx Alcohol Use: Yes. Hx Substance Use: Yes. Substance Use Type : Alcohol, Cocaine, Heroin. Hx Substance Use Treatment: Yes (Detox). - Substances Abused. Heroin. Route: Inhalation. Frequency: Daily. Amount used: 20 BAGS. Age of first use: 30. Date of Last Use: 05/08/16. Alcohol. Route: Oral. Frequency: Daily. Amount used: 1 PINT TEQUILLA. Age of first use: 14. Date of Last Use: 05/08/16. Crack. Route: Smoking. Frequency: Daily. Amount used: $60. Age of first use: 21. Date of Last Use: 05/08/16. Confirmed by the patient. Medical History: Medical history is unremarkable except for a background of two sections. Psychiatric History: Patient denies. Physical/Sexual Abuse/Trauma History: Patient denies. Additional Comment: Urine Drug Screen Results: EVELIN-Cocaine, OPI-Opiates.Noted. Mental Status Exam - Mental Status Exam Alert and Oriented to: Time, Place, Person Cognitive Function: Good Patient Appearance: Disheveled Mood: Withdrawn, Irritable Affect: Constricted Patient Behavior: Fatigued, Uncooperative Speech Pattern: Clear Voice Loudness: Normal Thought Process: Goal Oriented Thought Disorder: Not Present Hallucinations: Denies Suicidal Ideation: Denies Homicidal Ideation: Denies Insight/Judgement: Poor Sleep: Poorly, Difficulty falling asleep (wants seroquel) Appetite: Poor (due to frequent episodes of vomiting and nausea) Muscle strength/Tone: Normal (no complaint offered) Gait/Station: Normal Psychiatric Findings - Problem List ([place] 1, 2,3) (1) Alcohol dependence with uncomplicated withdrawal Current Visit: Yes Status: Acute (2) Cocaine dependence Current Visit: Yes Status: Acute Qualifiers: Substance use status: uncomplicated Qualified Code(s): F14.20 - Cocaine dependence, uncomplicated (3) Opioid dependence with withdrawal Current Visit: Yes Status: Acute (4) Substance induced mood disorder Current Visit: Yes Status: Acute (5) Nicotine dependence Current Visit: Yes Status: Acute Qualifiers: Nicotine product type: cigarettes Substance use status: uncomplicated Qualified Code(s): F17.210 - Nicotine dependence, cigarettes, uncomplicated (6) Asthma Current Visit: Yes Status: Chronic Qualifiers: Asthma severity: mild intermittent Asthma complication type: with status asthmaticus Qualified Code(s): J45.22 - Mild intermittent asthma with status asthmaticus (7) Epigastric abdominal pain Current Visit: Yes Status: Acute (8) Nausea & vomiting Current Visit: Yes Status: Acute Qualifiers: Vomiting Intractability: non-intractable (9) Weight loss Current Visit: Yes Status: Chronic (10) Insomnia Current Visit: Yes Status: Chronic - Initial Treatment Plan Initial Treatment Plan: Psychoeducation.Detoxification.Seroquel 50 mg po hs ( patient's request).Held due to repeated episodes of vomiting.Observation.
[2016-05-10] MEDS ORDERED: TRIMETHOBENZAMIDE HCL 200MG/2ML INJ IM ONE (16:45)
[2016-05-10] MEDS: TRIMETHOBENZAMIDE HCL 200MG/2ML INJ IM PRN (23:24)
[2016-05-10] MEDS: QUEtiapine FUMARATE 50 MG TABLET PO SCH (23:40)
[2016-05-10] MEDS: cloNIDine HCL 0.1 MG TABLET PO SCH (23:40)
[2016-05-10] MEDS: THIAMINE HCL 100 MG TABLET (FP) PO SCH (23:41)
[2016-05-11] MEDS: diazePAM 5 MG TABLET PO PRN ×2 (03:42→19:53)
--- NOTE | 2016-05-11 09:38 | PN ---
[facility] CIWA - CIWA Score Nausea/Vomitin-No Nausea/No Vomiting Muscle Tremors: 4-Moderate,w/Arms Extend Anxiety: 3 Agitation: 4-Moderately Restless Paroxysmal Sweats: 3 Orientation: 0-Oriented Tacttile Disturbances: 0-None Auditory Disturbances: 0-None Visual Disturbances: 0-None Headache: 0-None Present CIWA-Ar Total Score: 14 S COWS - Scale Resting Pulse: 1= [place] 81-100 Sweatin=Flushed/Facial Moisture Restless Observation: 1= Difficult to Sit Still Pupil Size: 0= Normal to Room Light Bone or Joint Aches: 2= Severe Diffuse Aches Runny Nose/ Eye Tearin= Nasal Congestion GI Upset > 30mins: 0= None Tremor Observation of Outstretched Hands: 2= Slight Tremor Visible Yawning Observation: 1= 1-2x During Session Anxiety or Irritability: 2=Irritable/Anxious Goose Flesh Skin: 0=Smooth Skin COWS Score: 12 S Progress Note (SOAP) Subjective: agitation anxiety sweats irritable tired interrupted sleep Objective: 05/11/16 09:37 Vital Signs Temperature 97.1 F L 05/11/16 06:49 Pulse Rate 62 05/11/16 06:49 Respiratory Rate 16 05/11/16 06:49 Blood Pressure 98/63 05/11/16 06:49 O2 Sat by Pulse Oximetry (%) Laboratory Tests 05/09/16 05/10/16 05/10/16 13:00 06:20 06:20 WBC 13.3 H RBC 4.67 Hgb 13.2 D Hct 40.6 D MCV 86.9 MCHC 32.5 RDW 13.6 Plt Count 253 MPV 9.7 D Sodium 140 Potassium 4.2 Chloride 101 Carbon Dioxide 31 Anion Gap 8 BUN 12 D Creatinine 0.7 Creat Clearance w eGFR > 60 POC Glucometer Random Glucose 92 Calcium 8.8 Total Bilirubin 0.4 D AST 12 L ALT 15 Alkaline Phosphatase 89 Total Protein 6.5 Albumin 3.7 Urine Color Yellow Urine Appearance Clear Urine pH 5.0 Ur Specific [place] 1.027 Urine Protein Negative Urine Glucose (UA) Negative Urine Ketones Negative Urine Blood Negative Urine Nitrite Negative Urine Bilirubin Negative Urine Urobilinogen Negative Ur Leukocyte Esterase Negative RPR Titer 05/10/16 05/10/16 06:20 23:05 WBC RBC Hgb Hct MCV MCHC RDW Plt Count MPV Sodium Potassium Chloride Carbon Dioxide Anion Gap BUN Creatinine Creat Clearance w eGFR POC Glucometer 118 Random Glucose Calcium Total Bilirubin AST ALT Alkaline Phosphatase Total Protein Albumin Urine Color Urine Appearance Urine pH Ur Specific [place] Urine Protein Urine Glucose (UA) Urine Ketones Urine Blood Urine Nitrite Urine Bilirubin Urine Urobilinogen Ur Leukocyte Esterase RPR Titer Nonreactive awake/alert ambulating pt denies of any N/V at this time no acute distress Assessment: 05/11/16 09:38 withdrawal sx Plan: continue detox increase fluids
[2016-05-11] MEDS: METHADONE HCL 5 MG TABLET (FOR DETOX USE ONLY) PO SCH (10:17)
[2016-05-11] MEDS: PRENATAL VITAMINS W/ FOLIC ACID TABLET (FP) PO SCH (10:17)
[2016-05-11] MEDS: diazePAM 5 MG TABLET PO SCH ×2 (10:18→22:59)
[2016-05-11] MEDS: metroNIDAZOLE 250 MG TABLET PO SCH ×2 (10:18→22:59)
[2016-05-11] MEDS: cloNIDine HCL 0.1 MG TABLET PO SCH ×2 (10:18→22:59)
[2016-05-11] MEDS: NICOTINE 21 MG/24 HOURS TOPICAL PATCH TD SCH (10:20)
[2016-05-11 10:25] LABS: BASOPHIL 0.2 % (0-2.0); MCH 28.3 pg (25.7-33.7); MCHC 32.9 g/dl (32.0-36.0); MEAN CELL VOLUME 85.9 fl (80-96); MEAN PLT VOLUME 9.1 fl (7.5-11.1); NEUTROPHILS 83.8 % (42.8-82.8); PLATELET COUNT 275 K/MM3 (134-434); RDW 13.6 % (11.6-15.6); WHITE BLOOD COUNT 18.4 K/mm3 (4.0-10.0)
[2016-05-11] MEDS: QUEtiapine FUMARATE 50 MG TABLET PO SCH (22:58)
[2016-05-11] MEDS: CYCLOBENZAPRINE HCL 10 MG TABLET (FP) PO PRN (22:58)
[2016-05-11] MEDS: THIAMINE HCL 100 MG TABLET (FP) PO SCH (23:01)
--- NOTE | 2016-05-12 10:09 | PN ---
[facility] Progress Note (SOAP) Subjective: nausea sweats interrupted sleep agitation body aches Objective: 05/12/16 10:05 Vital Signs Temperature 98.2 F 05/12/16 06:00 Pulse Rate 68 05/12/16 06:00 Respiratory Rate 16 05/12/16 06:00 Blood Pressure 142/84 05/12/16 06:00 O2 Sat by Pulse Oximetry (%) Laboratory Tests 05/09/16 05/10/16 05/10/16 13:00 06:20 06:20 WBC 13.3 H RBC 4.67 Hgb 13.2 D Hct 40.6 D MCV 86.9 MCHC 32.5 RDW 13.6 Plt Count 253 MPV 9.7 D Neutrophils % Lymphocytes % Monocytes % Eosinophils % Basophils % Sodium 140 Potassium 4.2 Chloride 101 Carbon Dioxide 31 Anion Gap 8 BUN 12 D Creatinine 0.7 Creat Clearance w eGFR > 60 POC Glucometer Random Glucose 92 Calcium 8.8 Total Bilirubin 0.4 D AST 12 L ALT 15 Alkaline Phosphatase 89 Total Protein 6.5 Albumin 3.7 Urine Color Yellow Urine Appearance Clear Urine pH 5.0 Ur Specific [place] 1.027 Urine Protein Negative Urine Glucose (UA) Negative Urine Ketones Negative Urine Blood Negative Urine Nitrite Negative Urine Bilirubin Negative Urine Urobilinogen Negative Ur Leukocyte Esterase Negative RPR Titer 05/10/16 05/10/16 05/11/16 06:20 23:05 07:00 WBC 18.4 H D RBC 4.93 Hgb 13.9 Hct 42.4 MCV 85.9 MCHC 32.9 RDW 13.6 Plt Count 275 MPV 9.1 Neutrophils % 83.8 H Lymphocytes % 12.2 Monocytes % 3.8 Eosinophils % 0.0 Basophils % 0.2 Sodium Potassium Chloride Carbon Dioxide Anion Gap BUN Creatinine Creat Clearance w eGFR POC Glucometer 118 Random Glucose Calcium Total Bilirubin AST ALT Alkaline Phosphatase Total Protein Albumin Urine Color Urine Appearance Urine pH Ur Specific [place] Urine Protein Urine Glucose (UA) Urine Ketones Urine Blood Urine Nitrite Urine Bilirubin Urine Urobilinogen Ur Leukocyte Esterase RPR Titer Nonreactive awake/alert lying in bed no acute distress Assessment: 05/12/16 10:05 withdrawal sx Plan: continue detox increase fluids zofran prn
[2016-05-12] MEDS: PRENATAL VITAMINS W/ FOLIC ACID TABLET (FP) PO SCH (10:30)
[2016-05-12] MEDS: diazePAM 5 MG TABLET PO SCH ×2 (10:30→22:59)
[2016-05-12] MEDS: METHADONE HCL 5 MG TABLET (FOR DETOX USE ONLY) PO SCH (10:30)
[2016-05-12] MEDS: cloNIDine HCL 0.1 MG TABLET PO SCH ×2 (10:30→22:58)
[2016-05-12] MEDS: metroNIDAZOLE 250 MG TABLET PO SCH ×2 (10:30→22:58)
[2016-05-12] MEDS: CYCLOBENZAPRINE HCL 10 MG TABLET (FP) PO PRN ×2 (10:30→23:22)
[2016-05-12] MEDS: NICOTINE 21 MG/24 HOURS TOPICAL PATCH TD SCH (10:31)
[2016-05-12] MEDS: ONDANSETRON *ODT* 4 MG TABLET SL PRN (20:51)
[2016-05-12] MEDS: TRIMETHOBENZAMIDE HCL 200MG/2ML INJ IM PRN (21:53)
[2016-05-12] MEDS: THIAMINE HCL 100 MG TABLET (FP) PO SCH (22:59)
[2016-05-12] MEDS: QUEtiapine FUMARATE 50 MG TABLET PO SCH (22:59)
[2016-05-13] MEDS ORDERED: diazePAM 5 MG TABLET PO SCH (10:00)
[2016-05-13] MEDS ORDERED: METHADONE HCL 10 MG TABLET (FOR DETOX USE ONLY) PO SCH (10:00)
[2016-05-13 10:21] LABS: BASOPHIL 0.2 % (0-2.0); EOSINOPHIL 0.3 % (0-4.5); MCH 27.9 pg (25.7-33.7); MCHC 32.5 g/dl (32.0-36.0); MEAN CELL VOLUME 85.8 fl (80-96); MEAN PLT VOLUME 8.8 fl (7.5-11.1); PLATELET COUNT 266 K/MM3 (134-434); RDW 13.6 % (11.6-15.6); WHITE BLOOD COUNT 12.4 K/mm3 (4.0-10.0)
[2016-05-13] MEDS: PRENATAL VITAMINS W/ FOLIC ACID TABLET (FP) PO SCH (11:50)
[2016-05-13] MEDS: NICOTINE 21 MG/24 HOURS TOPICAL PATCH TD SCH (11:51)
[2016-05-13] MEDS: cloNIDine HCL 0.1 MG TABLET PO SCH ×2 (11:51→23:11)
[2016-05-13] MEDS: metroNIDAZOLE 250 MG TABLET PO SCH ×2 (11:51→23:11)
[2016-05-13] MEDS: ONDANSETRON *ODT* 4 MG TABLET SL PRN (11:53)
--- NOTE | 2016-05-13 12:34 | PN ---
[facility] Progress Note (SOAP) Subjective: ALERT,IRRITABLE,ANXIOUS,INTERRUPTED SLEEP,PAIN IN THE BODY Objective: 05/13/16 12:32 Vital Signs Temperature 98.6 F 05/13/16 09:59 Pulse Rate 73 05/13/16 09:59 Respiratory Rate 16 05/13/16 09:59 Blood Pressure 128/91 05/13/16 09:59 O2 Sat by Pulse Oximetry (%) 05/13/16 12:32 Laboratory Last Values WBC 12.4 K/mm3 (4.0-10.0) H D 05/13/16 07:50 RBC 5.47 M/mm3 (3.60-5.2) H 05/13/16 07:50 Hgb 15.3 GM/dL (10.7-15.3) D 05/13/16 07:50 Hct 47.0 % (32.4-45.2) H 05/13/16 07:50 MCV 85.8 fl (80-96) 05/13/16 07:50 MCHC 32.5 g/dl (32.0-36.0) 05/13/16 07:50 RDW 13.6 % (11.6-15.6) 05/13/16 07:50 Plt Count 266 K/MM3 (134-434) 05/13/16 07:50 MPV 8.8 fl (7.5-11.1) 05/13/16 07:50 Neutrophils % 78.0 % (42.8-82.8) 05/13/16 07:50 Lymphocytes % 17.2 % (8-40) D 05/13/16 07:50 Monocytes % 4.3 % (3.8-10.2) 05/13/16 07:50 Eosinophils % 0.3 % (0-4.5) D 05/13/16 07:50 Basophils % 0.2 % (0-2.0) 05/13/16 07:50 Sodium 140 mmol/L (136-145) 05/10/16 06:20 Potassium 4.2 mmol/L (3.5-5.1) 05/10/16 06:20 Chloride 101 mmol/L (98-107) 05/10/16 06:20 Carbon Dioxide 31 mmol/L (21-32) 05/10/16 06:20 Anion Gap 8 (8-16) 05/10/16 06:20 BUN 12 mg/dL (7-18) D 05/10/16 06:20 Creatinine 0.7 mg/dL (0.55-1.02) 05/10/16 06:20 Creat Clearance w eGFR > 60 (>60) 05/10/16 06:20 POC Glucometer 118 UNITS (()) 05/10/16 23:05 Random Glucose 92 mg/dL (74-106) 05/10/16 06:20 Calcium 8.8 mg/dL (8.5-10.1) 05/10/16 06:20 Total Bilirubin 0.4 mg/dL (0.2-1.0) D 05/10/16 06:20 AST 12 U/L (15-37) L 05/10/16 06:20 ALT 15 U/L (12-78) 05/10/16 06:20 Alkaline Phosphatase 89 U/L (45-117) 05/10/16 06:20 Total Protein 6.5 g/dl (6.4-8.2) 05/10/16 06:20 Albumin 3.7 g/dl (3.4-5.0) 05/10/16 06:20 Urine Color Yellow 05/09/16 13:00 Urine Appearance Clear 05/09/16 13:00 Urine pH 5.0 (5.0-8.0) 05/09/16 13:00 Ur Specific [place] 1.027 (1.001-1.035) 05/09/16 13:00 Urine Protein Negative (NEGATIVE) 05/09/16 13:00 Urine Glucose (UA) Negative (NEGATIVE) 05/09/16 13:00 Urine Ketones Negative (NEGATIVE) 05/09/16 13:00 Urine Blood Negative (NEGATIVE) 05/09/16 13:00 Urine Nitrite Negative (NEGATIVE) 05/09/16 13:00 Urine Bilirubin Negative (NEGATIVE) 05/09/16 13:00 Urine Urobilinogen Negative E.U./dl (0.2-1.0) 05/09/16 13:00 Ur Leukocyte Esterase Negative (NEGATIVE) 05/09/16 13:00 RPR Titer Nonreactive (NONREACTIVE) 05/10/16 06:20 Assessment: 05/13/16 12:33 WITHDRAWAL SYMPTOM Plan: CONTINUE DETOX,DISCHARGE IN AM
[2016-05-13 22:42] LABS: URINE APPEARANCE CLOUDY; URINE BILIRUBIN NEGATIVE (NEGATIVE); URINE BLOOD NEGATIVE (NEGATIVE); URINE COLOR AMBER; URINE GLUCOSE (UA) NEGATIVE (NEGATIVE); URINE KETONE NEGATIVE (NEGATIVE); URINE NITRITE NEGATIVE (NEGATIVE); URINE PROTEIN NEGATIVE (NEGATIVE); URINE UROBILINOGEN NEGATIVE E.U./dl (0.2-1.0)
[2016-05-13 22:43] LABS: URINE LEUK ESTERASE 1+ (NEGATIVE)
[2016-05-13 22:49] LABS: CALCIUM OXALATE CRYSTALS FEW /hpf (NONE SEEN); URINE BACTERIA RARE /hpf (NONE SEEN); URINE MUCUS MANY; URINE RBC 4 /hpf (0-3); URINE WBC 16 /hpf (3-5)
[2016-05-13] MEDS: THIAMINE HCL 100 MG TABLET (FP) PO SCH (23:10)
[2016-05-13] MEDS: QUEtiapine FUMARATE 50 MG TABLET PO SCH (23:11)
[2016-05-14] MEDS ORDERED: METHADONE HCL 5 MG TABLET (FOR DETOX USE ONLY) PO SCH (06:00)
[2016-05-14 06:12] VITALS: BP 111/69; PULSE 65; TEMP 97.1
--- NOTE | 2016-05-14 10:05 | PN ---
S Progress Note (SOAP) Subjective: ALERT,NO COMPLAINT Objective: 05/14/16 10:03 Vital Signs Temperature 97.1 F L 05/14/16 06:11 Pulse Rate 65 05/14/16 06:11 Respiratory Rate 16 05/14/16 06:11 Blood Pressure 111/69 05/14/16 06:11 O2 Sat by Pulse Oximetry (%) Assessment: 05/14/16 10:04 DETOX COMPLETE,NO WITHDRAWAL SYMPTOM Plan: DISCHARGE TODAY,FOLLOW UP WITH AFTER CARE PROGRAM ARRANGEMENT
--- NOTE | 2016-05-14 10:10 | DS ---
[facility] Detox Discharge Summary Admission Date: 05/09/16 Discharge Date: 05/14/16 - History Present History: Alcohol Dependence, Opioid Dependence Additional Comments: FOLLOW UP WITH AFTER [facility] PROGRAM ARRANGEMENT AND PMD FOR MEDICAL PROBLEM Pertinent Past History: ASTHMA - Physical Exam Results Vital Signs: Vital Signs Temperature 97.1 F L 05/14/16 06:11 Pulse Rate 65 05/14/16 06:11 Respiratory Rate 16 05/14/16 06:11 Blood Pressure 111/69 05/14/16 06:11 O2 Sat by Pulse Oximetry (%) Pertinent Admission Physical Exam Findings: WITHDRAWAL SYMPTOM - Treatment Hospital Course: Detox Protocol Followed, Detoxed Safely, Responded well, Discharged Condition Good Patient has Accepted a Rehab Referral to: DECLINED - Medication Discharge Medications: Ambulatory Orders Quetiapine Fumarate [Seroquel -] 50 mg PO HS #30 tablet 05/10/16 - Diagnosis (1) Alcohol dependence with uncomplicated withdrawal Current Visit: Yes Status: Acute (2) Bacterial vaginosis Current Visit: Yes Status: Acute (3) Opioid dependence with withdrawal Current Visit: Yes Status: Acute (4) Weight loss Current Visit: Yes Status: Chronic (5) Vaginal trichomoniasis Current Visit: No Status: Chronic (6) Drug-induced mood disorder Current Visit: No Status: Suspected - AMA Did Patient Leave Against Medical Advice: No
[2016-05-14] MEDS: cloNIDine HCL 0.1 MG TABLET PO SCH (11:43)
[2016-05-14] MEDS: metroNIDAZOLE 250 MG TABLET PO SCH (11:44)
[2016-05-14] MEDS: NICOTINE 21 MG/24 HOURS TOPICAL PATCH TD SCH (11:44)
[2016-05-14] MEDS: PRENATAL VITAMINS W/ FOLIC ACID TABLET (FP) PO SCH (11:44)
== END 2016-05-14 12:32 | disposition home or self-care (01) | DRG 773 ==
LOC: YASAS 08:23 → Y6N 11:21
PROVIDERS: ADMIT Internal Medicine; ATTEND Internal Medicine
PROC: HZ2ZZZZ Detoxification Services for Substance Abuse Treatment (ICD-10-PCS; principal; 2016-05-09)
DX: F11.23 Opioid dependence with withdrawal (principal); F10.230 Alcohol dependence with withdrawal, uncomplicated; F14.20 Cocaine dependence, uncomplicated; F17.210 Nicotine dependence, cigarettes, uncomplicated; F19.24 Other psychoactive substance dependence with psychoactive substance-induced mood disorder; G47.00 Insomnia, unspecified; J45.22 Mild intermittent asthma with status asthmaticus; R11.2 Nausea with vomiting, unspecified; R10.13 Epigastric pain; N76.0 Acute vaginitis; A59.01 Trichomonal vulvovaginitis; Z87.898 Personal history of other specified conditions
CPT/HCPCS: 36415; 80053; 81003; 81015; 85025; 85027; 86593; 93005; 93010